=== PATIENT | male | born 1960 | race African-American/Black ===

== ENCOUNTER 2016-05-31 19:24 | Inpatient (IN) | payer OTHER ==
[2016-05-31 20:14] VITALS: BMI 23.0
--- NOTE | 2016-05-31 20:39 | HP ---
COWS - Scale Resting Pulse: 1= [place] 81-100 Sweatin=Flushed/Facial Moisture Restless Observation: 3= Extraneous Movement Pupil Size: 1= Pupils >than Normal Bone or Joint Aches: 4=Acute Joint/Muscle Pain Runny Nose/ Eye Tearin= Runny Nose/Eyes GI Upset > 30mins: 2= Nausea/Diarrhea Tremor Observation: 2= Slight Tremor Visible Yawning Observation: 0= None Anxiety or Irritability: 2=Irritable/Anxious Goose Flesh Skin: 0=Smooth Skin COWS Score: 19 Admission ROS S - HPI Chief Complaint: C/O WITHDRAWAL SX'S. SEEKING DETOX TXMENT Allergies/Adverse Reactions: Allergies Allergy/AdvReac Type Severity Reaction Status Date / Time No Known Allergies Allergy Verified 12/14/13 14:03 History of Present Illness: 55 Y.O. MALE WITH OPIOID DEPENDENCE ADMITTED FOR DETOX TXMENT. CLIENT IS KNOWN TO [facility]. REPORTS LONGEST CLEAN TIME 2 YEARS. Exam Limitations: No Limitations - Ebola screening Have you traveled outside of the country in the last 21 days: No (N) Have you had contact with anyone from an Ebola affected area: No Have you been sick,other than usual withdrawal symptoms: No Do you have a fever: No - Review of Systems Constitutional: Chills, Malaise, Night Sweats, Changes in sleep, Unintentional Wgt. Loss EENT: reports: Nose Congestion, Other Respiratory: reports: No Symptoms reported Cardiac: reports: No Symptoms Reported GI: reports: Nausea, Abdominal cramping : reports: No Symptoms Reported Musculoskeletal: reports: Back Pain Integumentary: reports: No Symptoms Reported Neuro: reports: No Symptoms reported Endocrine: reports: No Symptoms Reported Hematology: reports: No Symptoms Reported Psychiatric: reports: Anxious Other Systems: Reviewed and Negative Patient History - Patient Medical History Hx Anemia: No Hx Asthma: No Hx Chronic Obstructive Pulmonary Disease (COPD): No Hx Cardiac Disorders: No Hx Congestive Heart Failure: No Hx Hypertension: No Hx Hypercholesterolemia: No Hx Pacemaker: No HX Cerebrovascular Accident: No Hx Seizures: No Hx Dementia: No Hx Diabetes: No Hx Gastrointestinal Disorders: No Hx Liver Disease: No Hx Genitourinary Disorders: No Hx Sexually Transmitted Disorders: No Hx Renal Disease (ESRD): No Hx Thyroid Disease: No Hx Human Immunodeficiency Virus (HIV): No Hx Hepatitis C: No Hx Depression: No Hx Suicide Attempt: No Hx Bipolar Disorder: No Hx Schizophrenia: No Other Medical History: DENIES - Patient Surgical History Past Surgical History: No Hx Neurologic Surgery: No Hx Cataract Extraction: No Hx Cardiac Surgery: No Hx Lung Surgery: No Hx Breast Surgery: No Hx Breast Biopsy: No Hx Abdominal Surgery: No Hx Appendectomy: No Hx Cholecystectomy: No Hx Genitourinary Surgery: No Hx Section: No Hx Orthopedic Surgery: No Other Surgical History: L GROIN HERNIA REPAIR Anesthesia Reaction: No - PPD History Previous Implant?: Yes Documented Results: Negative w/o proof Implanted On Prior [facility] Admission?: No PPD to be Administered?: Yes - Smoking Cessation Smoking history: Current every day smoker Have you smoked in the past 12 months: Yes Aproximately how many cigarettes per day: 10 Cigars Per Day: 0 Hx Chewing Tobacco Use: No Initiated information on smoking cessation: Yes 'Breaking Loose' booklet given: 05/31/16 - Substance & Tx. History Hx Alcohol Use: No Substance Use Type: Heroin Hx Substance Use Treatment: Yes ([facility]) - Substances Abused Heroin Route: Inhalation Frequency: Daily Amount used: 5 bags Age of first use: 24 Date of Last Use: 05/30/16 Family Disease History - Family Disease History Family Disease History: Heart Disease: Mother, Other: Father () Admission Physical Exam S - Vital Signs Vital Signs: Vital Signs - 24 hr 05/31/16 19:53 Temperature 98.0 F Pulse Rate 89 Respiratory 20 Rate Blood Pressure 152/93 - Physical General Appearance: Yes: Appropriately Dressed, Mild Distress, Tremorous, Anxious HEENTM: Yes: Nasal Congestion Respiratory: Yes: Chest Non-Tender, No Respiratory Distress, No Accessory Muscle Use, Wheezing, Other (COUGH) Neck: Yes: No masses,lesions,Nodules, Supple, Trachea in good position Breast: Yes: Breast Exam Deferred Cardiology: Yes: Regular Rhythm, Regular Rate, S1, S2 Abdominal: Yes: Normal Bowel Sounds, Non Tender, Flat, Soft Genitourinary: Yes: Within Normal Limits Back: Yes: Normal Inspection Musculoskeletal: Yes: full range of Motion, Gait Steady Extremities: Yes: Normal Capillary Refill, Normal Range of Motion, Non-Tender, Tremors Neurological: Yes: therapeutic specialist II-XII NML intact, Alert, Motor Strength 5/5 Integumentary: Yes: Normal Color, Dry, Warm Lymphatic: Yes: Within Normal Limits - Diagnostic (1) Nicotine dependence Current Visit: Yes Status: Chronic Qualifiers: Nicotine product type: cigarettes Substance use status: uncomplicated Qualified Code(s): F17.210 - Nicotine dependence, cigarettes, uncomplicated (2) Opioid dependence with withdrawal Current Visit: Yes Status: Chronic (3) Cocaine dependence, uncomplicated Current Visit: Yes Status: Chronic Cleared for Admission [facility] - Detox or Rehab [facility] Level of Care: Medically Managed Detox Regimen/Protocol: Methadone [facility] Breath Alcohol Content Breath Alcohol Content: 0 Urine Drug Screen - Results Drug Screen Negative: No Urine Drug Screen Results: VICKI-Cocaine, OPI-Opiates, OXY-Oxycodone
[2016-05-31] MEDS ORDERED: P-EPHED 60MG/TRIPROLIDI 2.5MG TABLET PO PRN (20:48)
[2016-05-31] MEDS ORDERED: guaiFENesin/D-METHORPHAN HB 10 ML UNIT-DOSE CUPS PO PRN (20:48)
[2016-05-31] MEDS ORDERED: MAG HYDROX/AL HYDROX/SIMETH 30 ML UNIT-DOSE CUP PO PRN (20:48)
[2016-05-31] MEDS ORDERED: LOPERAMIDE HCL 2 MG CAPSULE PO PRN (20:48)
[2016-05-31] MEDS ORDERED: MAGNESIUM HYDROX 2400MG/30ML ORAL SUSPENSION 30 ML CUP PO PRN (20:48)
[2016-05-31] MEDS ORDERED: MAGNESIUM CITRATE 300 ML BOTTLE PO PRN (20:48)
[2016-05-31] MEDS ORDERED: MENTHOL/PHENOL 1 EACH UD MM PRN (20:48)
[2016-05-31] MEDS ORDERED: METHADONE HCL 10 MG TABLET (FOR DETOX USE ONLY) PO ONE ×3 (20:48→23:30)
[2016-05-31] MEDS ORDERED: diphenhydrAMINE HCL 50 MG CAPSULE PO PRN (20:48)
[2016-05-31] MEDS ORDERED: diazePAM 5 MG TABLET PO PRN (20:48)
[2016-05-31] MEDS ORDERED: ACETAMINOPHEN 325 MG TABLET (FP) PO PRN (20:48)
[2016-05-31] MEDS ORDERED: NICOTINE POLACRILEX 2 MG GUM BC PRN (20:48)
[2016-05-31] MEDS ORDERED: hydrOXYzine PAMOATE 50 MG CAPSULE (FP) PO PRN (20:48)
[2016-05-31] MEDS ORDERED: IBUPROFEN 400 MG TABLET (FP) PO PRN (20:48)
[2016-05-31 23:12] LABS: URINE APPEARANCE CLEAR; URINE BILIRUBIN NEGATIVE (NEGATIVE); URINE BLOOD NEGATIVE (NEGATIVE); URINE COLOR YELLOW; URINE GLUCOSE (UA) NEGATIVE (NEGATIVE); URINE KETONE 2+ (NEGATIVE); URINE LEUK ESTERASE NEGATIVE (NEGATIVE); URINE NITRITE NEGATIVE (NEGATIVE); URINE UROBILINOGEN 4.0 E.U/dl E.U./dl (0.2-1.0)
[2016-05-31 23:14] LABS: URINE PROTEIN 1+ (NEGATIVE)
[2016-05-31 23:16] LABS: URINE MUCUS FEW; URINE RBC 2 /hpf (0-3); URINE WBC 1 /hpf (3-5)
[2016-05-31] MEDS: THIAMINE HCL 100 MG TABLET (FP) PO SCH (23:21)
[2016-06-01] MEDS ORDERED: METHADONE HCL 10 MG TABLET (FOR DETOX USE ONLY) PO ONE (10:00)
[2016-06-01 10:08] LABS: MCH 28.1 pg (25.7-33.7); MEAN CELL VOLUME 87.6 fl (80-96); MEAN PLT VOLUME 8.7 fl (7.5-11.1); PLATELET COUNT 229 K/MM3 (134-434); RDW 12.7 % (11.9-15.9); WHITE BLOOD COUNT 5.9 K/mm3 (4.0-10.0)
[2016-06-01] MEDS: PRENATAL VITAMINS W/ FOLIC ACID TABLET (FP) PO SCH (10:32)
[2016-06-01] MEDS: NICOTINE 14 MG/24 HOURS TOPICAL PATCH TD SCH (10:33)
--- NOTE | 2016-06-01 10:56 | PN ---
BHS COWS - Scale Resting Pulse: 1= [place] 81-100 Sweatin=Flushed/Facial Moisture Restless Observation: 1= Difficult to Sit Still Pupil Size: 0= Normal to Room Light Bone or Joint Aches: 2= Severe Diffuse Aches Runny Nose/ Eye Tearin= Nasal Congestion GI Upset > 30mins: 2= Nausea/Diarrhea Tremor Observation of Outstretched Hands: 2= Slight Tremor Visible Yawning Observation: 1= 1-2x During Session Anxiety or Irritability: 1=Feels Anxious/Irritable Goose Flesh Skin: 0=Smooth Skin COWS Score: 13 BHS Progress Note (SOAP) Subjective: shakes sweats interrupted sleep body ache Objective: 06/01/16 10:54 Vital Signs Temperature 98.8 F 06/01/16 09:53 Pulse Rate 88 06/01/16 09:53 Respiratory Rate 16 06/01/16 09:53 Blood Pressure 137/90 06/01/16 09:53 O2 Sat by Pulse Oximetry (%) Laboratory Tests 05/31/16 06/01/16 22:00 07:00 WBC 5.9 RBC 4.31 Hgb 12.1 Hct 37.8 MCV 87.6 MCHC 32.0 RDW 12.7 Plt Count 229 MPV 8.7 Urine Color Yellow Urine Appearance Clear Urine pH 7.0 Ur Specific [place] 1.028 Urine Protein 1+ H Urine Glucose (UA) Negative Urine Ketones 2+ H Urine Blood Negative Urine Nitrite Negative Urine Bilirubin Negative Urine Urobilinogen 4.0 e.u/dl Ur Leukocyte Esterase Negative Urine RBC 2 Urine WBC 1 Ur Epithelial Cells Rare Urine Mucus Few labs pending awake/alert ambulating no acute distress Assessment: 06/01/16 10:56 withdrawal sx Plan: continue detox increase fluids
[2016-06-01 11:13] LABS: ALBUMIN 3.3 g/dl (3.4-5.0); ANION GAP 8 (8-16); CALCIUM 9.2 mg/dL (8.5-10.1); CO2 29 mmol/L (21-32); GLUCOSE,RANDOM 70 mg/dL (74-106)
[2016-06-01 11:18] LABS: ALK PHOS 69 U/L (45-117); BILIRUBIN,TOTAL 0.5 mg/dL (0.2-1.0); CREATININE 0.9 mg/dL (0.7-1.3); SGOT/AST 26 U/L (15-37); SGPT/ALT 32 U/L (12-78); TOT PROT 5.9 g/dl (6.4-8.2)
--- NOTE | 2016-06-01 16:54 | EKG ---
Test Reason : Blood Pressure : / mmHG Vent. Rate : 076 BPM Atrial Rate : 076 BPM P-R Int : 154 ms QRS Dur : 074 ms QT Int : 364 ms P-R-T Axes : 061 074 064 degrees QTc Int : 409 ms NORMAL SINUS RHYTHM NORMAL ECG NO PREVIOUS ECGS AVAILABLE Confirmed by DARIUS WILSON MD ([id number]) on 06/01/2016 4:54:30 PM Referred By: Confirmed By:DARIUS WILSON MD
[2016-06-01] MEDS: THIAMINE HCL 100 MG TABLET (FP) PO SCH (23:01)
[2016-06-02] MEDS ORDERED: METHADONE HCL 5 MG TABLET (FOR DETOX USE ONLY) PO ONE (10:00)
[2016-06-02] MEDS: PRENATAL VITAMINS W/ FOLIC ACID TABLET (FP) PO SCH (10:23)
[2016-06-02] MEDS: NICOTINE 14 MG/24 HOURS TOPICAL PATCH TD SCH (10:23)
--- NOTE | 2016-06-02 11:13 | PN ---
BHS COWS - Scale Resting Pulse: 0= [place] 80 or Below Sweatin= Chills/Flushing Restless Observation: 1= Difficult to Sit Still Pupil Size: 1= Pupils >than Normal Bone or Joint Aches: 1= Mild Discomfort Runny Nose/ Eye Tearin= Nasal Congestion GI Upset > 30mins: 1= Stomach Cramp Tremor Observation of Outstretched Hands: 1= Tremor [place], Not Seen Yawning Observation: 0= None Anxiety or Irritability: 1=Feels Anxious/Irritable Goose Flesh Skin: 0=Smooth Skin COWS Score: 8 BHS Progress Note (SOAP) Subjective: SWEATS BUT FEELING BETTER Objective: 06/02/16 11:12 Vital Signs Temperature 98.4 F 06/02/16 09:58 Pulse Rate 77 06/02/16 09:58 Respiratory Rate 16 06/02/16 09:58 Blood Pressure 153/99 06/02/16 09:58 O2 Sat by Pulse Oximetry (%) Laboratory Tests 05/31/16 06/01/16 06/01/16 22:00 07:00 07:00 WBC 5.9 RBC 4.31 Hgb 12.1 Hct 37.8 MCV 87.6 MCHC 32.0 RDW 12.7 Plt Count 229 MPV 8.7 Sodium 143 Potassium 3.9 Chloride 106 Carbon Dioxide 29 Anion Gap 8 BUN 10 D Creatinine 0.9 D Creat Clearance w eGFR > 60 Random Glucose 70 L Calcium 9.2 Total Bilirubin 0.5 D AST 26 ALT 32 D Alkaline Phosphatase 69 Total Protein 5.9 L Albumin 3.3 L Urine Color Yellow Urine Appearance Clear Urine pH 7.0 Ur Specific [place] 1.028 Urine Protein 1+ H Urine Glucose (UA) Negative Urine Ketones 2+ H Urine Blood Negative Urine Nitrite Negative Urine Bilirubin Negative Urine Urobilinogen 4.0 e.u/dl Ur Leukocyte Esterase Negative Urine RBC 2 Urine WBC 1 Ur Epithelial Cells Rare Urine Mucus Few RPR Titer 06/01/16 07:00 WBC RBC Hgb Hct MCV MCHC RDW Plt Count MPV Sodium Potassium Chloride Carbon Dioxide Anion Gap BUN Creatinine Creat Clearance w eGFR Random Glucose Calcium Total Bilirubin AST ALT Alkaline Phosphatase Total Protein Albumin Urine Color Urine Appearance Urine pH Ur Specific [place] Urine Protein Urine Glucose (UA) Urine Ketones Urine Blood Urine Nitrite Urine Bilirubin Urine Urobilinogen Ur Leukocyte Esterase Urine RBC Urine WBC Ur Epithelial Cells Urine Mucus RPR Titer Nonreactive PT AOX3 IN NAD AMBULATING Assessment: 06/02/16 11:13 WITHDRAWL SX'S Plan: CONT. DEETOX INCREASAE FLUIDS
[2016-06-02] MEDS: THIAMINE HCL 100 MG TABLET (FP) PO SCH (22:55)
[2016-06-03] MEDS ORDERED: METHADONE HCL 5 MG TABLET (FOR DETOX USE ONLY) PO ONE (10:00)
[2016-06-03] MEDS: PRENATAL VITAMINS W/ FOLIC ACID TABLET (FP) PO SCH (10:42)
[2016-06-03] MEDS: NICOTINE 14 MG/24 HOURS TOPICAL PATCH TD SCH (10:42)
--- NOTE | 2016-06-03 10:56 | PN ---
BHS Progress Note (SOAP) Subjective: sweats shakes interrupted sleep Objective: 06/03/16 10:55 Vital Signs Temperature 98.2 F 06/03/16 09:27 Pulse Rate 75 06/03/16 09:27 Respiratory Rate 18 06/03/16 09:27 Blood Pressure 138/95 06/03/16 09:27 O2 Sat by Pulse Oximetry (%) Laboratory Tests 05/31/16 06/01/16 06/01/16 22:00 07:00 07:00 WBC 5.9 RBC 4.31 Hgb 12.1 Hct 37.8 MCV 87.6 MCHC 32.0 RDW 12.7 Plt Count 229 MPV 8.7 Sodium 143 Potassium 3.9 Chloride 106 Carbon Dioxide 29 Anion Gap 8 BUN 10 D Creatinine 0.9 D Creat Clearance w eGFR > 60 Random Glucose 70 L Calcium 9.2 Total Bilirubin 0.5 D AST 26 ALT 32 D Alkaline Phosphatase 69 Total Protein 5.9 L Albumin 3.3 L Urine Color Yellow Urine Appearance Clear Urine pH 7.0 Ur Specific [place] 1.028 Urine Protein 1+ H Urine Glucose (UA) Negative Urine Ketones 2+ H Urine Blood Negative Urine Nitrite Negative Urine Bilirubin Negative Urine Urobilinogen 4.0 e.u/dl Ur Leukocyte Esterase Negative Urine RBC 2 Urine WBC 1 Ur Epithelial Cells Rare Urine Mucus Few RPR Titer 06/01/16 07:00 WBC RBC Hgb Hct MCV MCHC RDW Plt Count MPV Sodium Potassium Chloride Carbon Dioxide Anion Gap BUN Creatinine Creat Clearance w eGFR Random Glucose Calcium Total Bilirubin AST ALT Alkaline Phosphatase Total Protein Albumin Urine Color Urine Appearance Urine pH Ur Specific [place] Urine Protein Urine Glucose (UA) Urine Ketones Urine Blood Urine Nitrite Urine Bilirubin Urine Urobilinogen Ur Leukocyte Esterase Urine RBC Urine WBC Ur Epithelial Cells Urine Mucus RPR Titer Nonreactive awake/alert ambulating no acute distress Assessment: 06/03/16 10:55 withdrawal sx Plan: continue detox increase fluids
[2016-06-03] MEDS: THIAMINE HCL 100 MG TABLET (FP) PO SCH (23:04)
[2016-06-04] MEDS ORDERED: METHADONE HCL 10 MG TABLET (FOR DETOX USE ONLY) PO ONE (10:00)
[2016-06-04] MEDS: PRENATAL VITAMINS W/ FOLIC ACID TABLET (FP) PO SCH (10:32)
[2016-06-04] MEDS: NICOTINE 14 MG/24 HOURS TOPICAL PATCH TD SCH (10:33)
--- NOTE | 2016-06-04 12:21 | PN ---
BHS Progress Note (SOAP) Subjective: ALERT,IRRITABLE,ANXIOUS,INTERRUPTED SLEEP,PAIN IN THE BODY Objective: 06/04/16 12:20 Vital Signs Temperature 98.1 F 06/04/16 10:14 Pulse Rate 75 06/04/16 10:14 Respiratory Rate 18 06/04/16 10:14 Blood Pressure 131/76 06/04/16 10:14 O2 Sat by Pulse Oximetry (%) Assessment: 06/04/16 12:20 WITHDRAWAL SYMPTOM Plan: CONTINUE DETOX,DISCHARGE IN AM
[2016-06-04] MEDS: THIAMINE HCL 100 MG TABLET (FP) PO SCH (23:03)
[2016-06-05] MEDS ORDERED: METHADONE HCL 5 MG TABLET (FOR DETOX USE ONLY) PO ONE (06:00)
[2016-06-05 06:25] VITALS: TEMP 97.9
--- NOTE | 2016-06-05 08:53 | DS ---
[facility] Detox Discharge Summary Admission Date: 05/31/16 Discharge Date: 06/05/16 - History Present History: Cocaine Dependence, Opioid Dependence Additional Comments: FOLLOW UP WITH AFTER CARE PROGRAM ARRANGEMENT AND PMD FOR MEDICAL PROBLEM Pertinent Past History: NICOTINE DEPENDENCE - Physical Exam Results Vital Signs: Vital Signs Temperature 97.9 F 06/05/16 06:00 Pulse Rate 69 06/05/16 06:00 Respiratory Rate 18 06/05/16 06:00 Blood Pressure 129/78 06/05/16 06:00 O2 Sat by Pulse Oximetry (%) Pertinent Admission Physical Exam Findings: WITHDRAWAL SYMPTOM - Treatment Hospital Course: Detox Protocol Followed, Detoxed Safely, Responded well, Discharged Condition Good Patient has Accepted a Rehab Referral to: DECLINED - Medication Discharge Medications: Ambulatory Orders NK [No Known Home Medication] 12/14/13 - AMA Did Patient Leave Against Medical Advice: No
--- NOTE | 2016-06-05 08:53 | PN ---
S Progress Note (SOAP) Subjective: ALERT,NO COMPLAINT Objective: 06/05/16 08:52 Vital Signs Temperature 97.9 F 06/05/16 06:00 Pulse Rate 69 06/05/16 06:00 Respiratory Rate 18 06/05/16 06:00 Blood Pressure 129/78 06/05/16 06:00 O2 Sat by Pulse Oximetry (%) Assessment: 06/05/16 08:52 DETOX COMPLETED,NO WITHDRAWAL SYMPTOM Plan: DISCHARGE TODAY,FOLLOW UP WITH AFTER CARE PROGRAM ARRANGEMENT
[2016-06-05 09:54] VITALS: BP 119/77; PULSE 73
== END 2016-06-05 09:40 | disposition home or self-care (01) | DRG 773 ==
LOC: YASAS 19:24 → Y6N 20:10
PROVIDERS: ADMIT Internal Medicine Addiction Medicine; ATTEND Internal Medicine Addiction Medicine
PROC: HZ2ZZZZ Detoxification Services for Substance Abuse Treatment (ICD-10-PCS; principal; 2016-06-05)
DX: F11.23 Opioid dependence with withdrawal (principal); F14.20 Cocaine dependence, uncomplicated; F17.210 Nicotine dependence, cigarettes, uncomplicated
CPT/HCPCS: 36415; 80053; 81003; 81015; 85027; 86593; 93005; 93010

== ENCOUNTER 2017-11-21 15:25 | Inpatient (IN) | payer OTHER ==
[2017-11-21 19:00] VITALS: BMI 22.2
[2017-11-21] MEDS ORDERED: LOPERAMIDE HCL 2 MG CAPSULE PO PRN (21:26)
[2017-11-21] MEDS ORDERED: diazePAM 5 MG TABLET PO PRN (21:26)
[2017-11-21] MEDS ORDERED: ACETAMINOPHEN 325 MG TABLET (FP) PO PRN (21:26)
[2017-11-21] MEDS ORDERED: MAGNESIUM CITRATE 300 ML BOTTLE PO PRN (21:26)
[2017-11-21] MEDS ORDERED: P-EPHED 60MG/TRIPROLIDI 2.5MG TABLET PO PRN (21:26)
[2017-11-21] MEDS ORDERED: MENTHOL/PHENOL 1 EACH UD MM PRN (21:26)
[2017-11-21] MEDS ORDERED: MAG HYDROX/AL HYDROX/SIMETH 30 ML UNIT-DOSE CUP PO PRN (21:26)
[2017-11-21] MEDS ORDERED: guaiFENesin/D-METHORPHAN HB 10 ML UNIT-DOSE CUPS PO PRN (21:26)
[2017-11-21] MEDS ORDERED: MAGNESIUM HYDROX 2400MG/30ML ORAL SUSPENSION 30 ML CUP PO PRN (21:26)
[2017-11-21] MEDS ORDERED: METHADONE HCL 10 MG TABLET (FOR DETOX USE ONLY) PO ONE ×2 (21:26→23:00)
[2017-11-21] MEDS ORDERED: IBUPROFEN 400 MG TABLET (FP) PO PRN (21:26)
--- NOTE | 2017-11-21 21:26 | HP ---
COWS - Scale Resting Pulse: 0= [place] 80 or Below Sweatin= Chills/Flushing Restless Observation: 1= Difficult to Sit Still Pupil Size: 1= Pupils >than Normal Bone or Joint Aches: 1= Mild Discomfort Runny Nose/ Eye Tearin= Runny Nose/Eyes GI Upset > 30mins: 1= Stomach Cramp Tremor Observation: 1= Tremor [place], Not Seen Yawning Observation: 2= >3x During Session Anxiety or Irritability: 2=Irritable/Anxious Goose Flesh Skin: 0=Smooth Skin COWS Score: 12 Admission ROS S - [facility] Chief Complaint: opioid withdrawal symptoms Allergies/Adverse Reactions: Allergies Allergy/AdvReac Type Severity Reaction Status Date / Time No Known Allergies Allergy Verified 12/14/13 14:03 History of Present Illness: 56 yo male with hx heroin (nasal), and nicotine dependence is here seeking detox , this is one of multiple admissions. Last detox two months ago at [facility]. utox positive for MOP and VICKI, denies cocaine use. Denies any medical or psychiatric problems. Denies hx of seizures, blackouts, or overdose. Longest period of sobriety two years. Exam Limitations: No Limitations - Ebola screening Have you traveled outside of the country in the last 21 days: No Have you had contact with anyone from an Ebola affected area: No Have you been sick,other than usual withdrawal symptoms: No Do you have a fever: No - Review of Systems Constitutional: Chills, Changes in sleep, Weakness, Unintentional Wgt. Loss (5 lbs in the last 30 days) EENT: reports: Nose Congestion Respiratory: reports: No Symptoms reported Cardiac: reports: No Symptoms Reported GI: reports: Poor Fluid Intake, Abdominal cramping : reports: No Symptoms Reported Musculoskeletal: reports: Joint Pain Integumentary: reports: No Symptoms Reported Neuro: reports: No Symptoms reported Endocrine: reports: Increased Thirst Hematology: reports: No Symptoms Reported Psychiatric: reports: Orientated x3, Anxious Other Systems: Reviewed and Negative Patient History - Patient Medical History Hx Anemia: No Hx Asthma: No Hx Chronic Obstructive Pulmonary Disease (COPD): No Hx Cancer: No Hx Cardiac Disorders: No Hx Congestive Heart Failure: No Hx Hypertension: No Hx Hypercholesterolemia: No Hx Pacemaker: No HX Cerebrovascular Accident: No Hx Seizures: No Hx Dementia: No Hx Diabetes: No Hx Gastrointestinal Disorders: No Hx Liver Disease: No Hx Genitourinary Disorders: No Hx Sexually Transmitted Disorders: No Hx Renal Disease (ESRD): No Hx Thyroid Disease: No Hx Human Immunodeficiency Virus (HIV): No (last tested one year ago, declines furtehr testing at this time ) Hx Hepatitis C: No Hx Depression: No Hx Suicide Attempt: No Hx Bipolar Disorder: No Hx Schizophrenia: No - Patient Surgical History Past Surgical History: No Hx Neurologic Surgery: No Hx Cataract Extraction: No Hx Cardiac Surgery: No Hx Lung Surgery: No Hx Breast Surgery: No Hx Breast Biopsy: No Hx Abdominal Surgery: No Hx Appendectomy: No Hx Cholecystectomy: No Hx Genitourinary Surgery: No Hx Section: No Hx Orthopedic Surgery: No Other Surgical History: L GROIN HERNIA REPAIR Anesthesia Reaction: No - PPD History Previous Implant?: Yes Documented Results: Negative w/proof Date: 04/01/17 Results: 0mm PPD to be Administered?: No - Smoking Cessation Smoking history: Current every day smoker Have you smoked in the past 12 months: Yes Aproximately how many cigarettes per day: 10 Cigars Per Day: 0 Hx Chewing Tobacco Use: No Initiated information on smoking cessation: Yes 'Breaking Loose' booklet given: 11/21/17 - Substance & Tx. History Hx Alcohol Use: No Hx Substance Use: Yes Substance Use Type: Heroin Hx Substance Use Treatment: Yes ( Last detox two months ago at [facility]. ) - Substances Abused Heroin Route: Inhalation Frequency: Daily Amount used: 7-8 bags Age of first use: 24 Date of Last Use: 11/20/17 Family Disease History - Family Disease History Family Disease History: Heart Disease: Mother, Other: Father () Admission Physical Exam [facility] - Vital Signs Vital Signs: Vital Signs - 24 hr 11/21/17 18:59 Temperature 97.9 F Pulse Rate 71 Respiratory 18 Rate Blood Pressure 151/102 - Physical General Appearance: Yes: Mild Distress, Thin, Sweating, Anxious HEENTM: Yes: EOMI, Hearing grossly Normal, Normal ENT Inspection, Normocephalic , Normal Voice, ASHLIE, Pharynx Normal, Tm's normal Respiratory: Yes: Chest Non-Tender, No Respiratory Distress, No Accessory Muscle Use, Wheezing Neck: Yes: Within Normal Limits Breast: Yes: Breast Exam Deferred Cardiology: Yes: Regular Rhythm, Regular Rate Abdominal: Yes: Within Normal Limits Genitourinary: Yes: Within Normal Limits Back: Yes: Normal Inspection Musculoskeletal: Yes: full range of Motion, Gait Steady, Pelvis Stable Extremities: Yes: Normal Capillary Refill, Normal Inspection, Normal Range of Motion, Non-Tender Neurological: Yes: bulb grower II-XII NML intact, Fully Oriented, Alert, Motor Strength 5/5, Depressed Affect Integumentary: Yes: Normal Color, Warm, Diaphoresis Lymphatic: Yes: Within Normal Limits - Diagnostic (1) Wheezing Current Visit: Yes Status: Acute (2) Nicotine dependence Current Visit: Yes Status: Chronic Qualifiers: Nicotine product type: cigarettes Substance use status: uncomplicated Qualified Code(s): F17.210 - Nicotine dependence, cigarettes, uncomplicated (3) Opioid dependence with withdrawal Current Visit: Yes Status: Chronic (4) Recent weight loss Current Visit: Yes Status: Chronic Cleared for Admission [facility] - Detox or Rehab [facility] Level of Care: Medically Managed Detox Regimen/Protocol: Methadone [facility] Breath Alcohol Content Breath Alcohol Content: 0 Urine Drug Screen - Results Drug Screen Negative: No Urine Drug Screen Results: VICKI-Cocaine, OPI-Opiates
[2017-11-21] MEDS ORDERED: cloNIDine HCL 0.1 MG TABLET PO ONE (21:32)
[2017-11-21] MEDS ORDERED: MELATONIN 5 MG TABLETS PO PRN (22:00)
[2017-11-21] MEDS: THIAMINE HCL 100 MG TABLET (FP) PO SCH (22:42)
[2017-11-21 23:48] LABS: URINE APPEARANCE CLEAR; URINE BILIRUBIN NEGATIVE (<2.0 mg/dL); URINE COLOR YELLOW; URINE GLUCOSE (UA) NEGATIVE (NEGATIVE); URINE KETONE TRACE (NEGATIVE); URINE LEUK ESTERASE NEGATIVE (NEGATIVE); URINE NITRITE NEGATIVE (NEGATIVE); URINE PROTEIN NEGATIVE (NEGATIVE)
[2017-11-22] MEDS ORDERED: METHADONE HCL 10 MG TABLET (FOR DETOX USE ONLY) PO ONE (10:00)
[2017-11-22] MEDS: PRENATAL VITAMINS W/ FOLIC ACID TABLET (FP) PO SCH (10:12)
[2017-11-22 10:22] LABS: HEMATOCRIT 43.4 % (35.4-49); HEMOGLOBIN 13.7 GM/dL (11.7-16.9); MCHC 31.5 g/dl (32.0-35.9); MEAN PLT VOLUME 9.5 fl (7.5-11.1); PLATELET COUNT 229 K/MM3 (134-434); RBC 4.87 M/mm3 (4.00-5.60); RDW 13.4 % (11.9-15.9); WHITE BLOOD COUNT 4.8 K/mm3 (4.0-10.0)
[2017-11-22 11:36] LABS: CHLORIDE 100 mmol/L (98-107); POTASSIUM 4.6 mmol/L (3.5-5.1); SODIUM 141 mmol/L (136-145)
--- NOTE | 2017-11-22 11:53 | PN ---
BHS COWS - Scale Resting Pulse: 0= [place] 80 or Below Sweatin= Chills/Flushing Restless Observation: 3= Extraneous Movement Pupil Size: 0= Normal to Room Light Bone or Joint Aches: 4=Acute Joint/Muscle Pain Runny Nose/ Eye Tearin= None GI Upset > 30mins: 0= None Tremor Observation of Outstretched Hands: 1= Tremor [place], Not Seen Yawning Observation: 2= >3x During Session Anxiety or Irritability: 2=Irritable/Anxious Goose Flesh Skin: 0=Smooth Skin COWS Score: 13 BHS Progress Note (SOAP) Subjective: ANXIETY, SWEATS, INTERMITTENT SLEEP. Objective: 11/22/17 11:54 Vital Signs 11/22/17 11/22/17 06:20 10:13 Temperature 97.6 F 97.6 F Pulse Rate 64 70 Respiratory 18 18 Rate Blood Pressure 121/77 124/76 Laboratory Tests 11/21/17 11/22/17 23:35 07:00 WBC 4.8 RBC 4.87 Hgb 13.7 Hct 43.4 MCV 89.0 MCH 28.0 MCHC 31.5 L RDW 13.4 Plt Count 229 MPV 9.5 Urine Color Yellow Urine Appearance Clear Urine pH 5.0 D Ur Specific [place] 1.030 Urine Protein Negative Urine Glucose (UA) Negative Urine Ketones Trace H Urine Blood Negative Urine Nitrite Negative Urine Bilirubin Negative Urine Urobilinogen 2.0 Ur Leukocyte Esterase Negative Assessment: 11/22/17 11:55 WITHDRAWAL SX Plan: CONTINUE DETOX
[2017-11-22 11:57] LABS: ALBUMIN 3.7 g/dl (3.4-5.0); ALK PHOS 79 U/L (45-117); ANION GAP 6 MMOL/L (8-16); BILIRUBIN,TOTAL 0.5 mg/dL (0.2-1.0); BLOOD UREA NITROGEN 15 mg/dL (7-18); CALCIUM 9.3 mg/dL (8.5-10.1); CO2 35 mmol/L (21-32); GLUCOSE,RANDOM 96 mg/dL (74-106); SGOT/AST 32 U/L (15-37); SGPT/ALT 25 U/L (12-78); TOT PROT 6.8 g/dl (6.4-8.2)
--- NOTE | 2017-11-22 17:21 | EKG ---
Test Reason : Blood Pressure : / mmHG Vent. Rate : 066 BPM Atrial Rate : 066 BPM P-R Int : 144 ms QRS Dur : 090 ms QT Int : 392 ms P-R-T Axes : 032 072 067 degrees QTc Int : 410 ms NORMAL SINUS RHYTHM NORMAL ECG Confirmed by MD EPTE, CLAY ([id number]) on 11/22/2017 5:21:37 PM Referred By: Confirmed By:CLAY FREEMAN MD
[2017-11-22] MEDS: THIAMINE HCL 100 MG TABLET (FP) PO SCH (22:23)
[2017-11-23] MEDS ORDERED: METHADONE HCL 5 MG TABLET (FOR DETOX USE ONLY) PO ONE (10:00)
[2017-11-23] MEDS: PRENATAL VITAMINS W/ FOLIC ACID TABLET (FP) PO SCH (10:16)
--- NOTE | 2017-11-23 12:03 | PN ---
BHS COWS - Scale Resting Pulse: 0= [place] 80 or Below Sweatin= Chills/Flushing Restless Observation: 3= Extraneous Movement Pupil Size: 0= Normal to Room Light Bone or Joint Aches: 1= Mild Discomfort Runny Nose/ Eye Tearin= None GI Upset > 30mins: 0= None Tremor Observation of Outstretched Hands: 2= Slight Tremor Visible Yawning Observation: 2= >3x During Session Anxiety or Irritability: 2=Irritable/Anxious Goose Flesh Skin: 0=Smooth Skin COWS Score: 11 BHS Progress Note (SOAP) Subjective: ANXIETY,SWEATS,IRRITABILITY,CHILLS. Objective: 11/23/17 12:03 Vital Signs 11/23/17 11/23/17 06:03 10:45 Temperature 97.7 F 98.4 F Pulse Rate 57 L 73 Respiratory 18 20 Rate Blood Pressure 117/68 125/75 Laboratory Tests 11/21/17 11/22/17 11/22/17 23:35 07:00 07:00 WBC 4.8 RBC 4.87 Hgb 13.7 Hct 43.4 MCV 89.0 MCH 28.0 MCHC 31.5 L RDW 13.4 Plt Count 229 MPV 9.5 Sodium 141 Potassium 4.6 Chloride 100 Carbon Dioxide 35 H D Anion Gap 6 L BUN 15 Creatinine 1.0 Creat Clearance w eGFR > 60 Random Glucose 96 D Calcium 9.3 Total Bilirubin 0.5 AST 32 D ALT 25 D Alkaline Phosphatase 79 Total Protein 6.8 Albumin 3.7 Urine Color Yellow Urine Appearance Clear Urine pH 5.0 D Ur Specific [place] 1.030 Urine Protein Negative Urine Glucose (UA) Negative Urine Ketones Trace H Urine Blood Negative Urine Nitrite Negative Urine Bilirubin Negative Urine Urobilinogen 2.0 Ur Leukocyte Esterase Negative RPR Titer 11/22/17 07:00 WBC RBC Hgb Hct MCV MCH MCHC RDW Plt Count MPV Sodium Potassium Chloride Carbon Dioxide Anion Gap BUN Creatinine Creat Clearance w eGFR Random Glucose Calcium Total Bilirubin AST ALT Alkaline Phosphatase Total Protein Albumin Urine Color Urine Appearance Urine pH Ur Specific [place] Urine Protein Urine Glucose (UA) Urine Ketones Urine Blood Urine Nitrite Urine Bilirubin Urine Urobilinogen Ur Leukocyte Esterase RPR Titer Nonreactive Assessment: 11/23/17 12:03 WITHDRAWAL SX Plan: CONTINUE DETOX
[2017-11-23] MEDS: THIAMINE HCL 100 MG TABLET (FP) PO SCH (22:39)
[2017-11-24] MEDS ORDERED: METHADONE HCL 5 MG TABLET (FOR DETOX USE ONLY) PO ONE (10:00)
[2017-11-24] MEDS: PRENATAL VITAMINS W/ FOLIC ACID TABLET (FP) PO SCH (10:14)
--- NOTE | 2017-11-24 11:58 | PN ---
BHS COWS - Scale Resting Pulse: 0= [place] 80 or Below Sweatin= No chills or Flushing Restless Observation: 0= Sits Still Pupil Size: 0= Normal to Room Light Bone or Joint Aches: 1= Mild Discomfort Runny Nose/ Eye Tearin= None GI Upset > 30mins: 0= None Tremor Observation of Outstretched Hands: 0= None Yawning Observation: 0= None Anxiety or Irritability: 0= None Goose Flesh Skin: 0=Smooth Skin COWS Score: 1 BHS Progress Note (SOAP) Subjective: Mild body aches. Objective: 11/24/17 11:56 Laboratory Tests 11/21/17 11/22/17 11/22/17 23:35 07:00 07:00 WBC 4.8 RBC 4.87 Hgb 13.7 Hct 43.4 MCV 89.0 MCH 28.0 MCHC 31.5 L RDW 13.4 Plt Count 229 MPV 9.5 Sodium 141 Potassium 4.6 Chloride 100 Carbon Dioxide 35 H D Anion Gap 6 L BUN 15 Creatinine 1.0 Creat Clearance w eGFR > 60 Random Glucose 96 D Calcium 9.3 Total Bilirubin 0.5 AST 32 D ALT 25 D Alkaline Phosphatase 79 Total Protein 6.8 Albumin 3.7 Urine Color Yellow Urine Appearance Clear Urine pH 5.0 D Ur Specific [place] 1.030 Urine Protein Negative Urine Glucose (UA) Negative Urine Ketones Trace H Urine Blood Negative Urine Nitrite Negative Urine Bilirubin Negative Urine Urobilinogen 2.0 Ur Leukocyte Esterase Negative RPR Titer 11/22/17 07:00 WBC RBC Hgb Hct MCV MCH MCHC RDW Plt Count MPV Sodium Potassium Chloride Carbon Dioxide Anion Gap BUN Creatinine Creat Clearance w eGFR Random Glucose Calcium Total Bilirubin AST ALT Alkaline Phosphatase Total Protein Albumin Urine Color Urine Appearance Urine pH Ur Specific [place] Urine Protein Urine Glucose (UA) Urine Ketones Urine Blood Urine Nitrite Urine Bilirubin Urine Urobilinogen Ur Leukocyte Esterase RPR Titer Nonreactive Vital Signs Temperature 97.4 F L 11/24/17 09:48 Pulse Rate 64 11/24/17 09:48 Respiratory Rate 18 11/24/17 09:48 Blood Pressure 122/76 11/24/17 09:48 O2 Sat by Pulse Oximetry (%) Assessment: 11/24/17 11:57 Withdrawal syndrome Plan: Continue detox as per protocol.
[2017-11-24] MEDS: THIAMINE HCL 100 MG TABLET (FP) PO SCH (22:17)
--- NOTE | 2017-11-25 09:55 | PN ---
BHS Progress Note (SOAP) Subjective: Patient presents without any complaints. States " I feel better". Objective: 11/25/17 09:54 Laboratory Tests 11/21/17 11/22/17 11/22/17 23:35 07:00 07:00 WBC 4.8 RBC 4.87 Hgb 13.7 Hct 43.4 MCV 89.0 MCH 28.0 MCHC 31.5 L RDW 13.4 Plt Count 229 MPV 9.5 Sodium 141 Potassium 4.6 Chloride 100 Carbon Dioxide 35 H D Anion Gap 6 L BUN 15 Creatinine 1.0 Creat Clearance w eGFR > 60 Random Glucose 96 D Calcium 9.3 Total Bilirubin 0.5 AST 32 D ALT 25 D Alkaline Phosphatase 79 Total Protein 6.8 Albumin 3.7 Urine Color Yellow Urine Appearance Clear Urine pH 5.0 D Ur Specific [place] 1.030 Urine Protein Negative Urine Glucose (UA) Negative Urine Ketones Trace H Urine Blood Negative Urine Nitrite Negative Urine Bilirubin Negative Urine Urobilinogen 2.0 Ur Leukocyte Esterase Negative RPR Titer 11/22/17 07:00 WBC RBC Hgb Hct MCV MCH MCHC RDW Plt Count MPV Sodium Potassium Chloride Carbon Dioxide Anion Gap BUN Creatinine Creat Clearance w eGFR Random Glucose Calcium Total Bilirubin AST ALT Alkaline Phosphatase Total Protein Albumin Urine Color Urine Appearance Urine pH Ur Specific [place] Urine Protein Urine Glucose (UA) Urine Ketones Urine Blood Urine Nitrite Urine Bilirubin Urine Urobilinogen Ur Leukocyte Esterase RPR Titer Nonreactive PE: alert and oriented skin warm and dry car [id number] resp cta bl ext no edema Assessment: 11/25/17 09:54 Withdrawal syndrome Plan: patient medically stable tolerating detox well continue to monitor clinically
[2017-11-25] MEDS ORDERED: METHADONE HCL 10 MG TABLET (FOR DETOX USE ONLY) PO ONE (10:00)
[2017-11-25] MEDS: PRENATAL VITAMINS W/ FOLIC ACID TABLET (FP) PO SCH (10:26)
[2017-11-25] MEDS: THIAMINE HCL 100 MG TABLET (FP) PO SCH (22:27)
[2017-11-26 06:00] VITALS: BP 111/61; PULSE 64; TEMP 97.8
[2017-11-26] MEDS ORDERED: METHADONE HCL 5 MG TABLET (FOR DETOX USE ONLY) PO ONE (06:00)
[2017-11-26] MEDS: PRENATAL VITAMINS W/ FOLIC ACID TABLET (FP) PO SCH (10:44)
== END 2017-11-26 10:46 | disposition other institution (70) | DRG 773 ==
LOC: YASAS 15:25 → Y3N 20:49
PROC: HZ2ZZZZ Detoxification Services for Substance Abuse Treatment (ICD-10-PCS; principal; 2017-11-21)
DX: F11.23 Opioid dependence with withdrawal (principal); F14.20 Cocaine dependence, uncomplicated; F17.213 Nicotine dependence, cigarettes, with withdrawal; R63.4 Abnormal weight loss; Z68.22 Body mass index [BMI] 22.0-22.9, adult; R06.2 Wheezing; Z59.0 Homelessness
CPT/HCPCS: 36415; 80053; 81003; 85027; 86593; 93005; 93010; J0735

== ENCOUNTER 2017-11-26 11:10 | Inpatient (IN) | payer OTHER ==
[2017-11-26] MEDS ORDERED: hydrOXYzine PAMOATE 50 MG CAPSULE (FP) PO PRN (15:36)
[2017-11-26] MEDS ORDERED: ACETAMINOPHEN 325 MG TABLET (FP) PO PRN (15:36)
[2017-11-26] MEDS ORDERED: MAGNESIUM HYDROX 2400MG/30ML ORAL SUSPENSION 30 ML CUP PO PRN (15:36)
[2017-11-26] MEDS ORDERED: guaiFENesin/D-METHORPHAN HB 10 ML UNIT-DOSE CUPS PO PRN (15:36)
[2017-11-26] MEDS ORDERED: IBUPROFEN 400 MG TABLET (FP) PO PRN (15:36)
[2017-11-26] MEDS ORDERED: MENTHOL/PHENOL 1 EACH UD MM PRN (15:36)
[2017-11-26] MEDS ORDERED: MAGNESIUM CITRATE 300 ML BOTTLE PO PRN (15:36)
[2017-11-26] MEDS ORDERED: MAG HYDROX/AL HYDROX/SIMETH 30 ML UNIT-DOSE CUP PO PRN (15:36)
[2017-11-26] MEDS ORDERED: P-EPHED 60MG/TRIPROLIDI 2.5MG TABLET PO PRN (15:36)
[2017-11-26] MEDS ORDERED: LOPERAMIDE HCL 2 MG CAPSULE PO PRN (15:36)
--- NOTE | 2017-11-26 15:38 | HP ---
[facility] Assess/Revision - Admission History Date of Admission to Rehab: 11/26/17 - Findings Detox History & Physical reviewed: Yes Concur with findings: Yes Inpatient Rehab Admission - Initial Determination Free of communicable disease: Yes Not in need of hospitalization: Yes - Rehab Admission Criteria Previous failed treatment: Yes Poor recovery environment: Yes Lacks judgement: Yes Patient is meeting Inpatient Rehab admission criteria:: Yes
[2017-11-26] MEDS: THIAMINE HCL 100 MG TABLET (FP) PO SCH (22:00)
[2017-11-26] MEDS ORDERED: MELATONIN 5 MG TABLETS PO PRN (22:00)
[2017-11-27] MEDS: PRENATAL VITAMINS W/ FOLIC ACID TABLET (FP) PO SCH (10:34)
[2017-11-27] MEDS: THIAMINE HCL 100 MG TABLET (FP) PO SCH (21:47)
--- NOTE | 2017-11-28 07:50 | HP ---
Psychiatrist Admission - Data Date of interview: 11/28/17 Admission source: 3N Identifying data: This is the first [facility] admission for this 56 years old single Black male, unemployed with no source of income, homeless Medical History: Significant for history of surgery for left inguinal hernia repair. Smokes 10 cigarettes daily Psychiatric History: Denies history of previous psychiatric treatment Physical/Sexual Abuse/Trauma History: Denies history of emotional, physical or sexual abuse as well as DV relationship Additional Comment: Reports history of multiple previous arrests including 2 felony convictions. Denies being on parole/ptrobation currently Vital Signs: Vital Signs - 24 hr 11/28/17 11/28/17 00:30 06:53 Temperature 97.9 F Pulse Rate 68 Respiratory 18 16 Rate Blood Pressure 133/86 Allergies/Adverse Reactions: Allergies Allergy/AdvReac Type Severity Reaction Status Date / Time No Known Allergies Allergy Verified 12/14/13 14:03 Date of last physical exam: 11/21/17 Concur with the findings of this exam: Yes - Substance Abuse/Tx History Hx Alcohol Use: No Hx Substance Use: Yes Substance Use Type: Heroin (Started using heroin at age 24, used 7-8 bags daily. Last used on 11/20/17) Hx Substance Use Treatment: Yes (4 previous inpt detox admissions @ [facility]) Mental Status Exam - Mental Status Exam Alert and Oriented to: Time, Place, Person Cognitive Function: Fair Patient Appearance: Well Groomed Mood: Hopeful, Euthymic Patient Behavior: Cooperative Speech Pattern: Clear Voice Loudness: Normal Thought Process: Intact Thought Disorder: Not Present Hallucinations: Denies Suicidal Ideation: Denies Homicidal Ideation: Denies Insight/Judgement: Fair Sleep: Well Appetite: Fair Muscle strength/Tone: Normal Gait/Station: Normal Psychiatric Findings - Problem List ([place] 1, 2,3) (1) Opioid dependence Current Visit: No Status: Chronic (2) Nicotine dependence Current Visit: No Status: Acute Qualifiers: Nicotine product type: cigarettes Substance use status: in withdrawal Qualified Code(s): F17.213 - Nicotine dependence, cigarettes, with withdrawal - Initial Treatment Plan Initial Treatment Plan: Monitor progress
[2017-11-28] MEDS: PRENATAL VITAMINS W/ FOLIC ACID TABLET (FP) PO SCH (10:57)
[2017-11-28] MEDS: THIAMINE HCL 100 MG TABLET (FP) PO SCH (22:35)
[2017-11-29] MEDS: PRENATAL VITAMINS W/ FOLIC ACID TABLET (FP) PO SCH (10:53)
[2017-11-29] MEDS: THIAMINE HCL 100 MG TABLET (FP) PO SCH (21:59)
[2017-11-30] MEDS: PRENATAL VITAMINS W/ FOLIC ACID TABLET (FP) PO SCH (10:36)
[2017-11-30] MEDS: THIAMINE HCL 100 MG TABLET (FP) PO SCH (21:40)
[2017-12-01] MEDS: PRENATAL VITAMINS W/ FOLIC ACID TABLET (FP) PO SCH (10:55)
[2017-12-01] MEDS: THIAMINE HCL 100 MG TABLET (FP) PO SCH (21:57)
[2017-12-02] MEDS: PRENATAL VITAMINS W/ FOLIC ACID TABLET (FP) PO SCH (11:01)
[2017-12-02] MEDS: THIAMINE HCL 100 MG TABLET (FP) PO SCH (21:47)
[2017-12-03] MEDS: PRENATAL VITAMINS W/ FOLIC ACID TABLET (FP) PO SCH (10:29)
[2017-12-03] MEDS: THIAMINE HCL 100 MG TABLET (FP) PO SCH (22:01)
[2017-12-04 07:26] VITALS: BP 137/83; PULSE 75; TEMP 98.3
[2017-12-04] MEDS: PRENATAL VITAMINS W/ FOLIC ACID TABLET (FP) PO SCH (10:30)
--- NOTE | 2017-12-04 11:44 | PN ---
[facility] Progress Note Note: Psychiatric nurse practitioner clinical education assistant note: Pt. requesting an early discharge. Mr. Vasquez has been on unit for 13 days and states he is ready to leave. He plans on attending the [facility] outpatient program. As per chart patient does not have a psychiatric history. Pt. denies thoughts or urges to hurt self or others. Pt. leaving as an early discharge.
== END 2017-12-04 11:45 | disposition home or self-care (01) | DRG 772 ==
LOC: YASAS 11:10 → Y5N 11:11
PROVIDERS: ADMIT Psychiatry & Neurology Psychiatry; ATTEND Psychiatry & Neurology Psychiatry
PROC: HZ42ZZZ Group Counseling for Substance Abuse Treatment, Cognitive-Behavioral (ICD-10-PCS; principal; 2017-11-26)
DX: F11.20 Opioid dependence, uncomplicated (principal); F17.210 Nicotine dependence, cigarettes, uncomplicated; Z59.0 Homelessness

== ENCOUNTER 2018-02-23 11:54 | Inpatient (IN) | payer OTHER ==
[2018-02-23 12:19] VITALS: BMI 22.2
--- NOTE | 2018-02-23 14:54 | HP ---
COWS - Scale Resting Pulse: 1= [place] 81-100 Sweatin=Flushed/Facial Moisture Restless Observation: 1= Difficult to Sit Still Pupil Size: 0= Normal to Room Light Bone or Joint Aches: 2= Severe Diffuse Aches Runny Nose/ Eye Tearin= Runny Nose/Eyes GI Upset > 30mins: 2= Nausea/Diarrhea Tremor Observation: 0= None Yawning Observation: 0= None Anxiety or Irritability: 2=Irritable/Anxious Goose Flesh Skin: 0=Smooth Skin COWS Score: 12 CIWA Score - Admission Criteria OASAS Guidelines: Admission for Medically Managed Detox: Requires at least one of the followin. CIWA greater than 12 2. Seizures within the past 24 hours 3. Delirium tremens within the past 24 hours 4. Hallucinations within the past 24 hours 5. Acute intervention needed for co occurring medical disorder 6. Acute intervention needed for co occurring psychiatric disorder 7. Severe withdrawal that cannot be handled at a lower level of care (continued vomiting, continued diarrhea, abnormal vital signs) requiring intravenous medication and/or fluids 8. Admission ROS [facility] - HPI Allergies/Adverse Reactions: Allergies Allergy/AdvReac Type Severity Reaction Status Date / Time No Known Allergies Allergy Verified 02/23/18 14:29 History of Present Illness: patient here requesting detox from opiate use , reports 5 bags/ day via inhalation x 30 years , longest sobriety x 2 years with outpatient program [facility] [phone] , relapsed after leaving program . Latest use yesterday , current symptoms as above . Has been to this facility before, most recent detox about 6 weeks ago , planning to go to residential program after detox. utox + opi joan 0.000 tobacco : 4-5 cigs/day does not want nrt pmhx/pshx : denies psych : denies Shx : lives in [place] , unemployed Exam Limitations: Clinical Condition - Ebola screening Have you traveled outside of the country in the last 21 days: No Have you had contact with anyone from an Ebola affected area: No Have you been sick,other than usual withdrawal symptoms: No Do you have a fever: No - Review of Systems Constitutional: See HPI EENT: reports: Other (reading glasses , partial dentures) Respiratory: reports: No Symptoms reported Cardiac: reports: No Symptoms Reported GI: reports: See HPI : reports: No Symptoms Reported Musculoskeletal: reports: Muscle Pain Integumentary: reports: No Symptoms Reported Neuro: reports: No Symptoms reported Endocrine: reports: No Symptoms Reported Psychiatric: reports: Orientated x3, Anxious Patient History - Patient Medical History Hx Anemia: No Hx Asthma: No Hx Chronic Obstructive Pulmonary Disease (COPD): No Hx Cancer: No Hx Cardiac Disorders: No Hx Congestive Heart Failure: No Hx Hypertension: No Hx Hypercholesterolemia: No Hx Pacemaker: No HX Cerebrovascular Accident: No Hx Seizures: No Hx Dementia: No Hx Diabetes: No Hx Gastrointestinal Disorders: No Hx Liver Disease: No Hx Genitourinary Disorders: No Hx Sexually Transmitted Disorders: No Hx Renal Disease (ESRD): No Hx Thyroid Disease: No Hx Human Immunodeficiency Virus (HIV): No (last tested one year ago, declines furtehr testing at this time ) Hx Hepatitis C: No Hx Depression: No Hx Suicide Attempt: No Hx Bipolar Disorder: No Hx Schizophrenia: No - Patient Surgical History Past Surgical History: No Hx Neurologic Surgery: No Hx Cataract Extraction: No Hx Cardiac Surgery: No Hx Lung Surgery: No Hx Breast Surgery: No Hx Breast Biopsy: No Hx Abdominal Surgery: No Hx Appendectomy: No Hx Cholecystectomy: No Hx Genitourinary Surgery: No Hx Section: No Hx Orthopedic Surgery: No Other Surgical History: left inguinal hernia repair in 1978 Anesthesia Reaction: No - PPD History Previous Implant?: Yes Documented Results: Negative w/proof Implanted On Prior [facility] Admission?: Yes Date: 11/23/17 Results: 0 mm - Smoking Cessation Smoking history: Current every day smoker Have you smoked in the past 12 months: Yes Aproximately how many cigarettes per day: 10 Cigars Per Day: 0 Hx Chewing Tobacco Use: No Initiated information on smoking cessation: No - Substances Abused Heroin Route: Inhalation Frequency: Daily Amount used: 5 bags Age of first use: 24 Date of Last Use: 02/22/18 Family Disease History - Family Disease History Family Disease History: Heart Disease: Mother (d. 2000 ), Other: Father (d. at client age 11 ( murdered)), Brother (A & W ) Other Family History: no children Admission Physical Exam BHS - Vital Signs Vital Signs: Vital Signs - 24 hr 02/23/18 12:10 Temperature 98 F Pulse Rate 82 Respiratory 18 Rate Blood Pressure 121/79 - Physical General Appearance: Yes: Moderate Distress, Sweating, Anxious HEENTM: Yes: EOMI, Hearing grossly Normal, Normocephalic, Normal Voice Respiratory: Yes: Chest Non-Tender, Lungs Clear, Normal Breath Sounds Neck: Yes: Within Normal Limits, No masses,lesions,Nodules, Trachea in good position Breast: Yes: Breast Exam Deferred Cardiology: Yes: Regular Rhythm, Regular Rate, S1, S2 Abdominal: Yes: Within Normal Limits, Soft Genitourinary: Yes: Within Normal Limits Back: Yes: Normal Inspection Musculoskeletal: Yes: Gait Steady, Muscle Pain Extremities: Yes: Normal Capillary Refill, Normal Inspection Neurological: Yes: Fully Oriented, Motor Strength 5/5 Integumentary: Yes: Normal Color, Dry, Warm - Diagnostic (1) Nicotine dependence Current Visit: No Status: Chronic Qualifiers: Nicotine product type: cigarettes Substance use status: in withdrawal Qualified Code(s): F17.213 - Nicotine dependence, cigarettes, with withdrawal (2) Opioid dependence with withdrawal Current Visit: No Status: Acute (3) Recent weight loss Current Visit: No Status: Acute BHS Breath Alcohol Content Breath Alcohol Content: 0 Urine Drug Screen - Results Drug Screen Negative: No Urine Drug Screen Results: OPI-Opiates
[2018-02-23] MEDS ORDERED: P-EPHED 60MG/TRIPROLIDI 2.5MG TABLET PO PRN (14:59)
[2018-02-23] MEDS ORDERED: guaiFENesin/D-METHORPHAN HB 10 ML UNIT-DOSE CUPS PO PRN (14:59)
[2018-02-23] MEDS ORDERED: MAGNESIUM CITRATE 300 ML BOTTLE PO PRN (14:59)
[2018-02-23] MEDS ORDERED: MAG HYDROX/AL HYDROX/SIMETH 30 ML UNIT-DOSE CUP PO PRN (14:59)
[2018-02-23] MEDS ORDERED: MENTHOL/PHENOL 1 EACH UD MM PRN (14:59)
[2018-02-23] MEDS ORDERED: IBUPROFEN 400 MG TABLET (FP) PO PRN (14:59)
[2018-02-23] MEDS ORDERED: ACETAMINOPHEN 325 MG TABLET (FP) PO PRN (14:59)
[2018-02-23] MEDS ORDERED: MAGNESIUM HYDROX 2400MG/30ML ORAL SUSPENSION 30 ML CUP PO PRN (14:59)
[2018-02-23] MEDS ORDERED: METHADONE HCL 10 MG TABLET (FOR DETOX USE ONLY) PO ONE ×2 (15:45→23:00)
[2018-02-23] MEDS: PETROLATUM, WHITE 30 GM TUBE TP SCH (17:59)
[2018-02-23] MEDS ORDERED: MELATONIN 5 MG TABLETS PO PRN (22:00)
[2018-02-23] MEDS: THIAMINE HCL 100 MG TABLET (FP) PO SCH (22:55)
[2018-02-24] MEDS ORDERED: METHADONE HCL 10 MG TABLET (FOR DETOX USE ONLY) PO ONE (10:00)
[2018-02-24 10:35] LABS: HEMATOCRIT 38.3 % (35.4-49); HEMOGLOBIN 11.9 GM/dL (11.7-16.9); MCH 27.8 pg (25.7-33.7); MCHC 31.1 g/dl (32.0-35.9); MEAN CELL VOLUME 89.5 fl (80-96); MEAN PLT VOLUME 9.5 fl (7.5-11.1); PLATELET COUNT 232 K/MM3 (134-434); RBC 4.28 M/mm3 (4.00-5.60); RDW 13.4 % (11.9-15.9); WHITE BLOOD COUNT 5.3 K/mm3 (4.0-10.0)
[2018-02-24] MEDS: PETROLATUM, WHITE 30 GM TUBE TP SCH (10:39)
[2018-02-24] MEDS: PRENATAL VITAMINS W/ FOLIC ACID TABLET (FP) PO SCH (10:39)
[2018-02-24 11:14] LABS: ALBUMIN 4.1 g/dl (3.4-5.0); ALK PHOS 82 U/L (45-117); ANION GAP 5 MMOL/L (8-16); BILIRUBIN,TOTAL 0.4 mg/dL (0.2-1); BLOOD UREA NITROGEN 22 mg/dL (7-18); CALCIUM 9.1 mg/dL (8.5-10.1); CHLORIDE 104 mmol/L (98-107); CO2 32 mmol/L (21-32); CREATININE 1.1 mg/dL (0.55-1.3); GLUCOSE,RANDOM 66 mg/dL (74-106); POTASSIUM 5.1 mmol/L (3.5-5.1); SGOT/AST 26 U/L (15-37); SGPT/ALT 31 U/L (13-61); SODIUM 140 mmol/L (136-145)
--- NOTE | 2018-02-24 12:58 | PN ---
BHS COWS - Scale Resting Pulse: 0= [place] 80 or Below Sweatin=Flushed/Facial Moisture Restless Observation: 1= Difficult to Sit Still Pupil Size: 1= Pupils >than Normal Bone or Joint Aches: 1= Mild Discomfort Runny Nose/ Eye Tearin= Runny Nose/Eyes GI Upset > 30mins: 1= Stomach Cramp Tremor Observation of Outstretched Hands: 1= Tremor [place], Not Seen Yawning Observation: 0= None Anxiety or Irritability: 1=Feels Anxious/Irritable Goose Flesh Skin: 0=Smooth Skin COWS Score: 10 BHS Progress Note (SOAP) Subjective: interrupted sleep, sweaats Objective: 02/24/18 12:56 Vital Signs Temperature 97.7 F 02/24/18 10:04 Pulse Rate 71 02/24/18 10:04 Respiratory Rate 18 02/24/18 10:04 Blood Pressure 138/66 02/24/18 10:04 O2 Sat by Pulse Oximetry (%) Laboratory Tests 02/24/18 02/24/18 02/24/18 05:45 05:45 05:45 WBC 5.3 RBC 4.28 Hgb 11.9 Hct 38.3 MCV 89.5 MCH 27.8 MCHC 31.1 L RDW 13.4 Plt Count 232 MPV 9.5 Sodium 140 Potassium 5.1 Chloride 104 Carbon Dioxide 32 Anion Gap 5 L BUN 22 H Creatinine 1.1 Creat Clearance w eGFR > 60 Random Glucose 66 L Calcium 9.1 Total Bilirubin 0.4 AST 26 ALT 31 Alkaline Phosphatase 82 Total Protein 7.0 Albumin 4.1 HIV 1&2 Antibody Screen Negative HIV P24 Antigen Negative pt aox3 in nad ambulating Assessment: 02/24/18 12:56 withdrawal sx's Plan: cont. detox increase fluidsd
[2018-02-24] MEDS: THIAMINE HCL 100 MG TABLET (FP) PO SCH (22:29)
[2018-02-25] MEDS ORDERED: METHADONE HCL 5 MG TABLET (FOR DETOX USE ONLY) PO ONE (10:00)
[2018-02-25] MEDS: PRENATAL VITAMINS W/ FOLIC ACID TABLET (FP) PO SCH (10:28)
[2018-02-25] MEDS: PETROLATUM, WHITE 30 GM TUBE TP SCH (10:28)
--- NOTE | 2018-02-25 15:40 | PN ---
BHS COWS - Scale Resting Pulse: 0= [place] 80 or Below Sweatin= No chills or Flushing Restless Observation: 0= Sits Still Pupil Size: 0= Normal to Room Light Bone or Joint Aches: 0= None Runny Nose/ Eye Tearin= None GI Upset > 30mins: 0= None Tremor Observation of Outstretched Hands: 0= None Yawning Observation: 0= None Anxiety or Irritability: 0= None Goose Flesh Skin: 0=Smooth Skin COWS Score: 0 BHS Progress Note (SOAP) Subjective: Pt states he is feeling fine on the detox protocol- Vital Signs - 24 hr 02/24/18 02/24/18 02/25/18 18:46 22:28 00:30 Temperature 98 F 97.7 F Pulse Rate 68 69 Respiratory 18 18 18 Rate Blood Pressure 129/90 144/83 02/25/18 02/25/18 02/25/18 03:30 07:03 09:52 Temperature 97.2 F L Pulse Rate 61 79 Respiratory 18 18 18 Rate Blood Pressure 128/84 151/91 02/25/18 14:29 Temperature 98.2 F Pulse Rate 69 Respiratory 18 Rate Blood Pressure 142/83 Laboratory Tests 02/24/18 02/24/18 02/24/18 05:45 05:45 05:45 WBC 5.3 RBC 4.28 Hgb 11.9 Hct 38.3 MCV 89.5 MCH 27.8 MCHC 31.1 L RDW 13.4 Plt Count 232 MPV 9.5 Sodium 140 Potassium 5.1 Chloride 104 Carbon Dioxide 32 Anion Gap 5 L BUN 22 H Creatinine 1.1 Creat Clearance w eGFR > 60 Random Glucose 66 L Calcium 9.1 Total Bilirubin 0.4 AST 26 ALT 31 Alkaline Phosphatase 82 Total Protein 7.0 Albumin 4.1 RPR Titer HIV 1&2 Antibody Screen Negative HIV P24 Antigen Negative 02/24/18 05:45 WBC RBC Hgb Hct MCV MCH MCHC RDW Plt Count MPV Sodium Potassium Chloride Carbon Dioxide Anion Gap BUN Creatinine Creat Clearance w eGFR Random Glucose Calcium Total Bilirubin AST ALT Alkaline Phosphatase Total Protein Albumin RPR Titer Nonreactive HIV 1&2 Antibody Screen HIV P24 Antigen a/p: OUD- day #3 of detox protocol continue detox protocol
[2018-02-25] MEDS: THIAMINE HCL 100 MG TABLET (FP) PO SCH (23:11)
[2018-02-26] MEDS ORDERED: METHADONE HCL 10 MG TABLET (FOR DETOX USE ONLY) PO ONE (10:00)
[2018-02-26] MEDS: PETROLATUM, WHITE 30 GM TUBE TP SCH (10:18)
[2018-02-26] MEDS: PRENATAL VITAMINS W/ FOLIC ACID TABLET (FP) PO SCH (10:18)
--- NOTE | 2018-02-26 11:08 | PN ---
BHS Progress Note (SOAP) Subjective: body aches muscle cramping tremor restlessness Objective: 02/26/18 11:07 Vital Signs Temperature 97.3 F L 02/26/18 10:53 Pulse Rate 73 02/26/18 10:53 Respiratory Rate 18 02/26/18 10:53 Blood Pressure 143/97 02/26/18 10:53 O2 Sat by Pulse Oximetry (%) Laboratory Last Values WBC 5.3 K/mm3 (4.0-10.0) 02/24/18 05:45 RBC 4.28 M/mm3 (4.00-5.60) 02/24/18 05:45 Hgb 11.9 GM/dL (11.7-16.9) 02/24/18 05:45 Hct 38.3 % (35.4-49) 02/24/18 05:45 MCV 89.5 fl (80-96) 02/24/18 05:45 MCH 27.8 pg (25.7-33.7) 02/24/18 05:45 MCHC 31.1 g/dl (32.0-35.9) L 02/24/18 05:45 RDW 13.4 % (11.9-15.9) 02/24/18 05:45 Plt Count 232 K/MM3 (134-434) 02/24/18 05:45 MPV 9.5 fl (7.5-11.1) 02/24/18 05:45 Sodium 140 mmol/L (136-145) 02/24/18 05:45 Potassium 5.1 mmol/L (3.5-5.1) 02/24/18 05:45 Chloride 104 mmol/L (98-107) 02/24/18 05:45 Carbon Dioxide 32 mmol/L (21-32) 02/24/18 05:45 Anion Gap 5 MMOL/L (8-16) L 02/24/18 05:45 BUN 22 mg/dL (7-18) H 02/24/18 05:45 Creatinine 1.1 mg/dL (0.55-1.3) 02/24/18 05:45 Creat Clearance w eGFR > 60 (>60) 02/24/18 05:45 Random Glucose 66 mg/dL (74-106) L 02/24/18 05:45 Calcium 9.1 mg/dL (8.5-10.1) 02/24/18 05:45 Total Bilirubin 0.4 mg/dL (0.2-1) 02/24/18 05:45 AST 26 U/L (15-37) 02/24/18 05:45 ALT 31 U/L (13-61) 02/24/18 05:45 Alkaline Phosphatase 82 U/L (45-117) 02/24/18 05:45 Total Protein 7.0 g/dl (6.4-8.2) 02/24/18 05:45 Albumin 4.1 g/dl (3.4-5.0) 02/24/18 05:45 RPR Titer Nonreactive (NONREACTIVE) 02/24/18 05:45 HIV 1&2 Antibody Screen Negative 02/24/18 05:45 HIV P24 Antigen Negative 02/24/18 05:45 lab noted Assessment: 02/26/18 11:07 opiate withdrawal sx Plan: continue opiate detox
[2018-02-26] MEDS: THIAMINE HCL 100 MG TABLET (FP) PO SCH (22:49)
[2018-02-27] MEDS ORDERED: METHADONE HCL 5 MG TABLET (FOR DETOX USE ONLY) PO ONE (06:00)
[2018-02-27 06:57] VITALS: BP 141/69; PULSE 64; TEMP 97.7
--- NOTE | 2018-02-27 09:35 | DS ---
[facility] Detox Discharge Summary Admission Date: 02/23/18 Discharge Date: 02/27/18 - History Present History: Alcohol Dependence, Cocaine Dependence, Opioid Dependence - Physical Exam Results Vital Signs: Vital Signs Temperature 97.7 F 02/27/18 06:56 Pulse Rate 64 02/27/18 06:56 Respiratory Rate 18 02/27/18 06:56 Blood Pressure 141/69 02/27/18 06:56 O2 Sat by Pulse Oximetry (%) - Treatment Hospital Course: Detox Protocol Followed, Detoxed Safely, Responded well, Discharged Condition Good, Rehab Referral Accepted - Medication Discharge Medications: Ambulatory Orders NK [No Known Home Medication] 12/14/13 - Diagnosis (1) Cocaine dependence, uncomplicated Current Visit: Yes Status: Chronic (2) Opioid dependence with withdrawal Current Visit: Yes Status: Chronic (3) Recent weight loss Current Visit: No Status: Acute (4) Wheezing Current Visit: No Status: Acute (5) Withdrawal syndrome Current Visit: Yes Status: Chronic Qualifiers: Substance type: cocaine Qualified Code(s): F14.23 - Cocaine dependence with withdrawal (6) Nicotine dependence Current Visit: No Status: Chronic Qualifiers: Nicotine product type: cigarettes Substance use status: in withdrawal Qualified Code(s): F17.213 - Nicotine dependence, cigarettes, with withdrawal (7) Opioid dependence Current Visit: No Status: Chronic - AMA Did Patient Leave Against Medical Advice: No (going home)
== END 2018-02-27 09:26 | disposition home or self-care (01) | DRG 773 ==
LOC: YASAS 11:54 → Y6N 15:33
PROC: HZ2ZZZZ Detoxification Services for Substance Abuse Treatment (ICD-10-PCS; principal; 2018-02-23)
DX: F11.23 Opioid dependence with withdrawal (principal); F14.20 Cocaine dependence, uncomplicated; F17.213 Nicotine dependence, cigarettes, with withdrawal
CPT/HCPCS: 36415; 80053; 85027; 86593; 87389

== ENCOUNTER 2018-06-09 11:12 | Inpatient (IN) | payer OTHER ==
[2018-06-09 12:11] VITALS: BMI 20.9
--- NOTE | 2018-06-09 12:57 | HP ---
COWS - Scale Resting Pulse: 1= [place] 81-100 Sweatin= Chills/Flushing Restless Observation: 1= Difficult to Sit Still Pupil Size: 0= Normal to Room Light Bone or Joint Aches: 4=Acute Joint/Muscle Pain Runny Nose/ Eye Tearin= Runny Nose/Eyes GI Upset > 30mins: 3= Vomiting/Diarrhea Tremor Observation: 1= Tremor [place], Not Seen Yawning Observation: 0= None Anxiety or Irritability: 0= None Goose Flesh Skin: 0=Smooth Skin COWS Score: 13 CIWA Score - Admission Criteria OASAS Guidelines: Admission for Medically Managed Detox: Requires at least one of the followin. CIWA greater than 12 2. Seizures within the past 24 hours 3. Delirium tremens within the past 24 hours 4. Hallucinations within the past 24 hours 5. Acute intervention needed for co occurring medical disorder 6. Acute intervention needed for co occurring psychiatric disorder 7. Severe withdrawal that cannot be handled at a lower level of care (continued vomiting, continued diarrhea, abnormal vital signs) requiring intravenous medication and/or fluids 8. Admission ROS [facility] - HPI Allergies/Adverse Reactions: Allergies Allergy/AdvReac Type Severity Reaction Status Date / Time No Known Allergies Allergy Verified 06/09/18 12:43 History of Present Illness: patient here requesting detox from opiate use , reports 5-6 bags/ day via inhalation x 30 years , relapse after d/c from this facility " a few weeks later " longest sobriety x 2 years with outpatient program [facility] 2004- 2006 , relapsed after leaving program . Latest use Tuesday morning 4-5 bags via inhalation, current symptoms as above . Most recent detox February 2018 , planning to go to residential program after detox. Denies other detox since February 2018 utox + opi , + mtd ,fen , met joan 0.000 tobacco : 4-5 cigs/day does not want nrt pmhx/pshx : denies psych : denies , denies current SI / HI meds : denies Shx : lives in senior living , unemployed Exam Limitations: Clinical Condition - Ebola screening Have you traveled outside of the country in the last 21 days: No Have you had contact with anyone from an Ebola affected area: No Have you been sick,other than usual withdrawal symptoms: No - Review of Systems Constitutional: See HPI, Loss of Appetite EENT: reports: Nose Congestion Respiratory: reports: No Symptoms reported Cardiac: reports: No Symptoms Reported GI: reports: See HPI : reports: No Symptoms Reported Musculoskeletal: reports: Back Pain, Muscle Pain Integumentary: reports: No Symptoms Reported Neuro: reports: Headache Endocrine: reports: No Symptoms Reported Psychiatric: reports: Orientated x3 Patient History - Patient Medical History Hx Anemia: No Hx Asthma: No Hx Chronic Obstructive Pulmonary Disease (COPD): No Hx Cancer: No Hx Cardiac Disorders: No Hx Congestive Heart Failure: No Hx Hypertension: No Hx Hypercholesterolemia: No Hx Pacemaker: No HX Cerebrovascular Accident: No Hx Seizures: No Hx Dementia: No Hx Diabetes: No Hx Gastrointestinal Disorders: No Hx Liver Disease: No Hx Genitourinary Disorders: No Hx Sexually Transmitted Disorders: No Hx Renal Disease (ESRD): No Hx Thyroid Disease: No Hx Human Immunodeficiency Virus (HIV): No (last tested one year ago, declines furtehr testing at this time ) Hx Hepatitis C: No Hx Depression: No Hx Suicide Attempt: No Hx Bipolar Disorder: No Hx Schizophrenia: No - Patient Surgical History Past Surgical History: Yes Hx Neurologic Surgery: No Hx Cataract Extraction: No Hx Cardiac Surgery: No Hx Lung Surgery: No Hx Breast Surgery: No Hx Breast Biopsy: No Hx Abdominal Surgery: No Hx Appendectomy: No Hx Cholecystectomy: No Hx Genitourinary Surgery: No Hx Section: No Hx Orthopedic Surgery: No Other Surgical History: left inguinal hernia repair in 1978 Anesthesia Reaction: No - PPD History Previous Implant?: Yes Documented Results: Negative w/proof Implanted On Prior [facility] Admission?: Yes Date: 11/23/17 Results: 0 mm - Smoking Cessation Smoking history: Current every day smoker Have you smoked in the past 12 months: Yes Aproximately how many cigarettes per day: 10 Cigars Per Day: 0 Hx Chewing Tobacco Use: No Initiated information on smoking cessation: No - Substances Abused Heroin Route: Inhalation Frequency: Daily Amount used: 5-6 bags Age of first use: 24 Date of Last Use: 06/07/18 Family Disease History - Family Disease History Family Disease History: Heart Disease: Mother (d. 1999 ), Other: Father (d. at client age 11 ( murdered)), Brother (A & W ) Admission Physical Exam BHS - Vital Signs Vital Signs: Vital Signs - 24 hr 06/09/18 12:10 Temperature 97.6 F Pulse Rate 86 Respiratory 18 Rate Blood Pressure 132/82 - Physical General Appearance: Yes: Moderate Distress, Thin HEENTM: Yes: EOMI, Hearing grossly Normal, Normocephalic, Normal Voice Respiratory: Yes: Chest Non-Tender, Lungs Clear, Normal Breath Sounds Neck: Yes: No masses,lesions,Nodules, Trachea in good position Cardiology: Yes: Regular Rhythm, Regular Rate, S1, S2 Abdominal: Yes: Non Tender, Soft Genitourinary: Yes: Within Normal Limits Back: Yes: Normal Inspection Musculoskeletal: Yes: Gait Steady Extremities: Yes: Normal Capillary Refill, Normal Range of Motion, Non-Tender Neurological: Yes: Fully Oriented, Alert, Motor Strength 5/5 Integumentary: Yes: Normal Color, Warm - Diagnostic (1) Nicotine dependence Current Visit: Yes Status: Chronic Qualifiers: Nicotine product type: cigarettes (2) Opioid dependence with withdrawal Current Visit: Yes Status: Acute BHS Breath Alcohol Content Breath Alcohol Content: 0 Urine Drug Screen - Results Drug Screen Negative: No Urine Drug Screen Results: OPI-Opiates, MET-Methamphetamine, MTD-Methadone, FEN- Fentanyl Inpatient Rehab Admission - Rehab Decision to Admit Inpatient rehab admission?: No
[2018-06-09] MEDS ORDERED: cloNIDine HCL 0.1 MG TABLET PO PRN (12:59)
[2018-06-09] MEDS ORDERED: MENTHOL/PHENOL 1 EACH UD MM PRN (12:59)
[2018-06-09] MEDS ORDERED: METHOCARBAMOL 500 MG TABLET PO PRN (12:59)
[2018-06-09] MEDS ORDERED: ACETAMINOPHEN 325 MG TABLET (FP) PO PRN ×2 (12:59)
[2018-06-09] MEDS ORDERED: BISMUTH SUBSALICYLATE 524 MG/30 ML UD PO PRN (12:59)
[2018-06-09] MEDS ORDERED: MELATONIN 5 MG TABLETS PO PRN (12:59)
[2018-06-09] MEDS ORDERED: MAGNESIUM CITRATE 300 ML BOTTLE PO PRN (12:59)
[2018-06-09] MEDS ORDERED: IBUPROFEN 400 MG TABLET (FP) PO PRN (12:59)
[2018-06-09] MEDS ORDERED: MAGNESIUM HYDROX 2400MG/30ML ORAL SUSPENSION 30 ML CUP PO PRN (12:59)
[2018-06-09] MEDS ORDERED: MAG HYDROX/AL HYDROX/SIMETH 30 ML UNIT-DOSE CUP PO PRN (12:59)
[2018-06-09] MEDS ORDERED: NICOTINE POLACRILEX 2 MG GUM BUC PRN (12:59)
[2018-06-09] MEDS ORDERED: DICYCLOMINE HCL 10 MG CAPSULE PO PRN (12:59)
[2018-06-09] MEDS ORDERED: METHADONE HCL 10 MG TABLET (FOR DETOX USE ONLY) PO ONE (13:00)
[2018-06-09] MEDS ORDERED: ONDANSETRON *ODT* 4 MG TABLET SL ONE (14:20)
[2018-06-09] MEDS ORDERED: diazePAM 5 MG TABLET PO PRN (22:50)
[2018-06-09] MEDS: THIAMINE HCL 100 MG TABLET (FP) PO SCH (23:06)
[2018-06-10] MEDS ORDERED: METHADONE HCL 10 MG TABLET (FOR DETOX USE ONLY) PO ONE (10:00)
[2018-06-10] MEDS: PRENATAL VITAMINS W/ FOLIC ACID TABLET (FP) PO SCH (10:54)
[2018-06-10 11:01] LABS: HEMATOCRIT 41.7 % (35.4-49); HEMOGLOBIN 13.1 GM/dL (11.7-16.9); MCH 27.7 pg (25.7-33.7); MCHC 31.4 g/dl (32.0-35.9); MEAN CELL VOLUME 88.3 fl (80-96); MEAN PLT VOLUME 8.5 fl (7.5-11.1); PLATELET COUNT 392 K/MM3 (134-434); RBC 4.72 M/mm3 (4.00-5.60); RDW 13.1 % (11.9-15.9); WHITE BLOOD COUNT 12.3 K/mm3 (4.0-10.0)
[2018-06-10 11:05] LABS: ALBUMIN 4.4 g/dl (3.4-5.0); ALK PHOS 107 U/L (45-117); ANION GAP 5 MMOL/L (8-16); BILIRUBIN,TOTAL 0.4 mg/dL (0.2-1); BLOOD UREA NITROGEN 27 mg/dL (7-18); CALCIUM 9.7 mg/dL (8.5-10.1); CHLORIDE 96 mmol/L (98-107); CO2 35 mmol/L (21-32); CREATININE 1.2 mg/dL (0.55-1.3); GLUCOSE,RANDOM 100 mg/dL (74-106); POTASSIUM 4.4 mmol/L (3.5-5.1); SGOT/AST 36 U/L (15-37); SGPT/ALT 39 U/L (13-61); SODIUM 135 mmol/L (136-145); TOT PROT 8.1 g/dl (6.4-8.2)
--- NOTE | 2018-06-10 13:13 | PN ---
BHS COWS - Scale Resting Pulse: 0= [place] 80 or Below Sweatin= Chills/Flushing Restless Observation: 1= Difficult to Sit Still Pupil Size: 0= Normal to Room Light Bone or Joint Aches: 2= Severe Diffuse Aches Runny Nose/ Eye Tearin= Nasal Congestion GI Upset > 30mins: 2= Nausea/Diarrhea Tremor Observation of Outstretched Hands: 2= Slight Tremor Visible Yawning Observation: 0= None Anxiety or Irritability: 1=Feels Anxious/Irritable Goose Flesh Skin: 3=Piloerection COWS Score: 13 BHS Progress Note (SOAP) Subjective: Chills especially at night, tremors, interrupted sleep and anxiety Objective: 06/10/18 13:13 Vital Signs - 8 hr 06/10/18 06/10/18 08:27 09:40 Temperature 97.7 F 98.4 F Pulse Rate 74 83 Respiratory 18 18 Rate Blood Pressure 115/61 106/56 L Laboratory Last Values WBC 12.3 K/mm3 (4.0-10.0) H 06/10/18 05:35 RBC 4.72 M/mm3 (4.00-5.60) 06/10/18 05:35 Hgb 13.1 GM/dL (11.7-16.9) 06/10/18 05:35 Hct 41.7 % (35.4-49) 06/10/18 05:35 MCV 88.3 fl (80-96) 06/10/18 05:35 MCH 27.7 pg (25.7-33.7) 06/10/18 05:35 MCHC 31.4 g/dl (32.0-35.9) L 06/10/18 05:35 RDW 13.1 % (11.9-15.9) 06/10/18 05:35 Plt Count 392 K/MM3 (134-434) D 06/10/18 05:35 MPV 8.5 fl (7.5-11.1) D 06/10/18 05:35 Sodium 135 mmol/L (136-145) L 06/10/18 05:35 Potassium 4.4 mmol/L (3.5-5.1) 06/10/18 05:35 Chloride 96 mmol/L (98-107) L 06/10/18 05:35 Carbon Dioxide 35 mmol/L (21-32) H 06/10/18 05:35 Anion Gap 5 MMOL/L (8-16) L 06/10/18 05:35 BUN 27 mg/dL (7-18) H 06/10/18 05:35 Creatinine 1.2 mg/dL (0.55-1.3) 06/10/18 05:35 Creat Clearance w eGFR 62.63 (>60) 06/10/18 05:35 Random Glucose 100 mg/dL (74-106) 06/10/18 05:35 Calcium 9.7 mg/dL (8.5-10.1) 06/10/18 05:35 Total Bilirubin 0.4 mg/dL (0.2-1) 06/10/18 05:35 AST 36 U/L (15-37) 06/10/18 05:35 ALT 39 U/L (13-61) 06/10/18 05:35 Alkaline Phosphatase 107 U/L (45-117) 06/10/18 05:35 Total Protein 8.1 g/dl (6.4-8.2) 06/10/18 05:35 Albumin 4.4 g/dl (3.4-5.0) 06/10/18 05:35 RPR Titer Nonreactive (NONREACTIVE) 06/10/18 05:35 Labs noted Assessment: 06/10/18 13:13 Withdrawal sx Plan: Continue detox
[2018-06-10] MEDS: THIAMINE HCL 100 MG TABLET (FP) PO SCH (22:30)
[2018-06-10] MEDS: traZODone HCL 50 MG TABLET (FP) PO SCH (23:34)
[2018-06-11] MEDS ORDERED: METHADONE HCL 10 MG TABLET (FOR DETOX USE ONLY) PO ONE (10:00)
[2018-06-11] MEDS ORDERED: METHADONE (DETOX) 10 MG, METHADONE (DETOX) 5 MG PO ONE (10:00)
[2018-06-11] MEDS: PRENATAL VITAMINS W/ FOLIC ACID TABLET (FP) PO SCH (10:27)
[2018-06-11] MEDS ORDERED: METHADONE HCL 5 MG TABLET (FOR DETOX USE ONLY) ONE (10:28)
[2018-06-11] MEDS ORDERED: METHADONE HCL 10 MG TABLET (FOR DETOX USE ONLY) ONE (10:29)
--- NOTE | 2018-06-11 12:07 | PN ---
BHS COWS - Scale Resting Pulse: 1= [place] 81-100 Sweatin=Flushed/Facial Moisture Restless Observation: 1= Difficult to Sit Still Pupil Size: 0= Normal to Room Light Bone or Joint Aches: 2= Severe Diffuse Aches Runny Nose/ Eye Tearin= Nasal Congestion GI Upset > 30mins: 0= None Tremor Observation of Outstretched Hands: 2= Slight Tremor Visible Yawning Observation: 1= 1-2x During Session Anxiety or Irritability: 2=Irritable/Anxious Goose Flesh Skin: 0=Smooth Skin COWS Score: 12 BHS Progress Note (SOAP) Subjective: sweats shakes interrupted sleep body aches restless Objective: 06/11/18 12:06 Vital Signs Temperature 97.5 F L 06/11/18 09:57 Pulse Rate 76 06/11/18 09:57 Respiratory Rate 18 06/11/18 09:57 Blood Pressure 126/75 06/11/18 09:57 O2 Sat by Pulse Oximetry (%) Laboratory Tests 06/10/18 06/10/18 06/10/18 05:35 05:35 05:35 WBC 12.3 H RBC 4.72 Hgb 13.1 Hct 41.7 MCV 88.3 MCH 27.7 MCHC 31.4 L RDW 13.1 Plt Count 392 D MPV 8.5 D Sodium 135 L Potassium 4.4 Chloride 96 L Carbon Dioxide 35 H Anion Gap 5 L BUN 27 H Creatinine 1.2 Creat Clearance w eGFR 62.63 Random Glucose 100 Calcium 9.7 Total Bilirubin 0.4 AST 36 ALT 39 Alkaline Phosphatase 107 Total Protein 8.1 Albumin 4.4 RPR Titer Nonreactive aaox3 ambulating no acute distress Assessment: 06/11/18 12:06 withdrawal sx Plan: continue detox increase fluids
[2018-06-11] MEDS: traZODone HCL 50 MG TABLET (FP) PO SCH (22:44)
[2018-06-11] MEDS: THIAMINE HCL 100 MG TABLET (FP) PO SCH (22:44)
[2018-06-12] MEDS ORDERED: METHADONE HCL 10 MG TABLET (FOR DETOX USE ONLY) PO ONE (10:00)
--- NOTE | 2018-06-12 10:04 | PN ---
BHS Progress Note (SOAP) Subjective: feeling better anxiety Objective: 06/12/18 10:03 Vital Signs Temperature 96.4 F L 06/12/18 08:50 Pulse Rate 68 06/12/18 08:50 Respiratory Rate 18 06/12/18 08:50 Blood Pressure 156/98 06/12/18 08:50 O2 Sat by Pulse Oximetry (%) aaox3 ambulating no acute distress Assessment: 06/12/18 10:04 mild withdrawal sx Plan: continue detox increase fluids d/c in am
[2018-06-12] MEDS: PRENATAL VITAMINS W/ FOLIC ACID TABLET (FP) PO SCH (10:08)
[2018-06-12] MEDS: traZODone HCL 50 MG TABLET (FP) PO SCH (22:13)
[2018-06-12] MEDS: THIAMINE HCL 100 MG TABLET (FP) PO SCH (22:13)
[2018-06-13] MEDS ORDERED: METHADONE HCL 5 MG TABLET (FOR DETOX USE ONLY) PO ONE (06:00)
--- NOTE | 2018-06-13 08:52 | DS ---
[facility] Detox Discharge Summary Admission Date: 06/09/18 Discharge Date: 06/13/18 - History Present History: Cannabis Dependence, Cocaine Dependence, Opioid Dependence - Physical Exam Results Vital Signs: Vital Signs Temperature 97.7 F 06/13/18 06:00 Pulse Rate 68 06/13/18 06:00 Respiratory Rate 18 06/13/18 06:00 Blood Pressure 132/69 06/13/18 06:00 O2 Sat by Pulse Oximetry (%) - Treatment Hospital Course: Detox Protocol Followed, Detoxed Safely, Responded well, Discharged Condition Good, Rehab Referral Accepted - Medication Discharge Medications: Ambulatory Orders NK [No Known Home Medication] 12/14/13 - Diagnosis (1) Opioid dependence with withdrawal Current Visit: Yes Status: Chronic (2) Nicotine dependence Current Visit: Yes Status: Chronic Qualifiers: Nicotine product type: cigarettes Substance use status: uncomplicated Qualified Code(s): F17.210 - Nicotine dependence, cigarettes, uncomplicated (3) Recent weight loss Current Visit: No Status: Acute (4) Wheezing Current Visit: Yes Status: Chronic (5) Cocaine dependence, uncomplicated Current Visit: Yes Status: Chronic - AMA Did Patient Leave Against Medical Advice: No [facility]
[2018-06-13 09:37] VITALS: BP 147/76; PULSE 76; TEMP 98.1
[2018-06-13] MEDS: PRENATAL VITAMINS W/ FOLIC ACID TABLET (FP) PO SCH (10:13)
== END 2018-06-13 11:34 | disposition other institution (70) | DRG 773 ==
LOC: YASAS 11:12 → Y6N 14:07
PROVIDERS: ADMIT Surgery; ATTEND Surgery
PROC: HZ2ZZZZ Detoxification Services for Substance Abuse Treatment (ICD-10-PCS; principal; 2018-06-09)
DX: F11.23 Opioid dependence with withdrawal (principal); F14.20 Cocaine dependence, uncomplicated; F12.20 Cannabis dependence, uncomplicated; R06.2 Wheezing; R63.4 Abnormal weight loss; Z68.21 Body mass index [BMI] 21.0-21.9, adult; Z59.0 Homelessness
CPT/HCPCS: 36415; 80053; 85027; 86593; J0735; Q0162

== ENCOUNTER 2018-06-13 12:18 | Inpatient (IN) | payer OTHER ==
[2018-06-13] MEDS ORDERED: MENTHOL/PHENOL 1 EACH UD MM PRN (14:12)
[2018-06-13] MEDS ORDERED: IBUPROFEN 400 MG TABLET (FP) PO PRN (14:12)
[2018-06-13] MEDS ORDERED: guaiFENesin 200 MG/10 ML 10 ML UNIT-DOSE CUPS PO PRN (14:12)
[2018-06-13] MEDS ORDERED: P-EPHED 60MG/TRIPROLIDI 2.5MG TABLET PO PRN (14:12)
[2018-06-13] MEDS ORDERED: LOPERAMIDE HCL 2 MG CAPSULE PO PRN (14:12)
[2018-06-13] MEDS ORDERED: MAGNESIUM HYDROX 2400MG/30ML ORAL SUSPENSION 30 ML CUP PO PRN (14:12)
[2018-06-13] MEDS ORDERED: MAGNESIUM CITRATE 300 ML BOTTLE PO PRN (14:12)
[2018-06-13] MEDS ORDERED: hydrOXYzine PAMOATE 50 MG CAPSULE (FP) PO PRN (14:12)
[2018-06-13] MEDS ORDERED: MAG HYDROX/AL HYDROX/SIMETH 30 ML UNIT-DOSE CUP PO PRN (14:12)
[2018-06-13] MEDS ORDERED: NICOTINE POLACRILEX 4 MG GUM BUC PRN (14:12)
[2018-06-13] MEDS ORDERED: ACETAMINOPHEN 325 MG TABLET (FP) PO PRN (14:12)
--- NOTE | 2018-06-13 14:12 | HP ---
[facility] Rehab Assess/Revision - Admission History Admitted to Rehab from: Renee Loja Date of Admission to Rehab: 06/13/2018 - Vital signs Vital Signs: Vital Signs Period Temp Pulse Resp BP Sys/Basurto Pulse Ox Last 24 Hr 98.1 F 72 18 122/80 - Findings Detox History & Physical reviewed: Yes Concur with findings: Yes Inpatient Rehab Admission - Rehab Decision to Admit Inpatient rehab admission?: Yes - Initial Determination Are CD services needed?: Yes Free of communicable disease: Yes Not in need of hospitalization: Yes - Rehab Admission Criteria Previous failed treatment: Yes Poor recovery environment: Yes Comorbidities: Yes Lacks judgement: Yes Patient is meeting Inpatient Rehab admission criteria:: Yes
[2018-06-13] MEDS: THIAMINE HCL 100 MG TABLET (FP) PO SCH (21:35)
[2018-06-13] MEDS ORDERED: MELATONIN 5 MG TABLETS PO PRN (22:00)
[2018-06-14] MEDS: PRENATAL VITAMINS W/ FOLIC ACID TABLET (FP) PO SCH (10:23)
[2018-06-14] MEDS: NICOTINE 21 MG/24 HOURS TOPICAL PATCH TD SCH (10:23)
[2018-06-14] MEDS: THIAMINE HCL 100 MG TABLET (FP) PO SCH (21:59)
[2018-06-15] MEDS: NICOTINE 21 MG/24 HOURS TOPICAL PATCH TD SCH (10:06)
[2018-06-15] MEDS: PRENATAL VITAMINS W/ FOLIC ACID TABLET (FP) PO SCH (10:06)
[2018-06-15] MEDS: THIAMINE HCL 100 MG TABLET (FP) PO SCH (21:54)
[2018-06-16] MEDS: PRENATAL VITAMINS W/ FOLIC ACID TABLET (FP) PO SCH (10:08)
[2018-06-16] MEDS: NICOTINE 21 MG/24 HOURS TOPICAL PATCH TD SCH (10:09)
[2018-06-16] MEDS: THIAMINE HCL 100 MG TABLET (FP) PO SCH (22:13)
[2018-06-17 07:29] VITALS: BP 120/69; PULSE 68; TEMP 97.8
--- NOTE | 2018-06-17 11:00 | PN ---
[facility] Progress Note Note: Patient was admitted to rehab on 06/13 following detox treatment. He has requested to leave, encouraged patient to complete program but to no avail. As stated by patient, " I made my mind to come here and I'm making my mind to leave ", no further reason given. Patient discharged against medical advice
[2018-06-17] MEDS: NICOTINE 21 MG/24 HOURS TOPICAL PATCH TD SCH (11:17)
[2018-06-17] MEDS: PRENATAL VITAMINS W/ FOLIC ACID TABLET (FP) PO SCH (11:17)
== END 2018-06-17 10:45 | disposition left against medical advice (07) | DRG 770 ==
LOC: YASAS 12:18 → Y5N 12:19
PROVIDERS: ADMIT Neuromusculoskeletal Medicine & OMM; ATTEND Neuromusculoskeletal Medicine & OMM
PROC: HZ42ZZZ Group Counseling for Substance Abuse Treatment, Cognitive-Behavioral (ICD-10-PCS; principal; 2018-06-13)
DX: F11.20 Opioid dependence, uncomplicated (principal); F17.210 Nicotine dependence, cigarettes, uncomplicated

== ENCOUNTER 2018-11-04 09:21 | Inpatient (IN) | payer OTHER ==
[2018-11-04 10:27] VITALS: BMI 19.8
--- NOTE | 2018-11-04 11:10 | HP ---
COWS - Scale Resting Pulse: 0= [place] 80 or Below Sweatin= Chills/Flushing Restless Observation: 0= Sits Still Pupil Size: 0= Normal to Room Light Bone or Joint Aches: 2= Severe Diffuse Aches Runny Nose/ Eye Tearin= Nasal Congestion GI Upset > 30mins: 2= Nausea/Diarrhea Tremor Observation: 1= Tremor [place], Not Seen Yawning Observation: 1= 1-2x During Session Anxiety or Irritability: 2=Irritable/Anxious Goose Flesh Skin: 3=Piloerection COWS Score: 13 CIWA Score - Admission Criteria OASAS Guidelines: Admission for Medically Managed Detox: Requires at least one of the followin. CIWA greater than 12 2. Seizures within the past 24 hours 3. Delirium tremens within the past 24 hours 4. Hallucinations within the past 24 hours 5. Acute intervention needed for co occurring medical disorder 6. Acute intervention needed for co occurring psychiatric disorder 7. Severe withdrawal that cannot be handled at a lower level of care (continued vomiting, continued diarrhea, abnormal vital signs) requiring intravenous medication and/or fluids 8. Admission ROS [facility] Chief Complaint: Withdrawal symptoms. Allergies/Adverse Reactions: Allergies Allergy/AdvReac Type Severity Reaction Status Date / Time No Known Allergies Allergy Verified 06/13/18 13:19 History of Present Illness: 57 y.o. man with an extensive history of heroin dependence is here seeking detox services. Longest period of illicit drug abstinence has been 2 years while residing in an inpatient residential program. He was last here for detox in June,. Exam Limitations: No Limitations - Ebola screening Have you traveled outside of the country in the last 21 days: No (N) Have you had contact with anyone from an Ebola affected area: No Do you have a fever: No - Review of Systems Constitutional: Loss of Appetite, Unintentional Wgt. Loss EENT: reports: Tearing Respiratory: reports: No Symptoms reported Cardiac: reports: No Symptoms Reported GI: reports: Nausea : reports: No Symptoms Reported Musculoskeletal: reports: No Symptoms Reported Integumentary: reports: No Symptoms Reported Neuro: reports: No Symptoms reported Endocrine: reports: No Symptoms Reported Hematology: reports: No Symptoms Reported Psychiatric: reports: Orientated x3 Other Systems: Reviewed and Negative Patient History - Patient Medical History Hx Anemia: No Hx Asthma: No Hx Chronic Obstructive Pulmonary Disease (COPD): No Hx Cancer: No Hx Cardiac Disorders: No Hx Congestive Heart Failure: No Hx Hypertension: No Hx Hypercholesterolemia: No Hx Pacemaker: No HX Cerebrovascular Accident: No Hx Seizures: No Hx Dementia: No Hx Diabetes: No Hx Gastrointestinal Disorders: No Hx Liver Disease: No Hx Genitourinary Disorders: No Hx Sexually Transmitted Disorders: No Hx Renal Disease (ESRD): No Hx Thyroid Disease: No Hx Human Immunodeficiency Virus (HIV): No (last tested one year ago, declines furtehr testing at this time ) Hx Hepatitis C: No Hx Depression: No Hx Suicide Attempt: No Hx Bipolar Disorder: No Hx Schizophrenia: No - Patient Surgical History Past Surgical History: Yes Hx Neurologic Surgery: No Hx Cataract Extraction: No Hx Cardiac Surgery: No Hx Lung Surgery: No Hx Breast Surgery: No Hx Breast Biopsy: No Hx Abdominal Surgery: No Hx Appendectomy: No Hx Cholecystectomy: No Hx Genitourinary Surgery: No Hx Section: No Hx Orthopedic Surgery: No Other Surgical History: left inguinal hernia repair in 1978 Anesthesia Reaction: No - PPD History Previous Implant?: Yes Documented Results: Negative w/proof Implanted On Prior [facility] Admission?: Yes Date: 02/08/18 Results: 0 mm. PPD to be Administered?: No - Reproductive History Patient is a Female of Child Bearing Age (11 -55 yrs old): No - Smoking Cessation Smoking history: Current every day smoker Have you smoked in the past 12 months: Yes Aproximately how many cigarettes per day: 10 Cigars Per Day: 0 Hx Chewing Tobacco Use: No Initiated information on smoking cessation: Yes 'Breaking Loose' booklet given: 11/04/18 - Substance & Tx. History Hx Alcohol Use: No Hx Substance Use: Yes Substance Use Type: Heroin Hx Substance Use Treatment: Yes (Detox and rehab here ) - Substances abused Heroin Substance route: Inhalation Frequency: Daily Amount used: 5-6 bags Age of first use: 24 Date of last use: 11/03/18 Family Disease History - Family Disease History Family Disease History: Heart Disease: Mother (d. 1999 ), Other: Father (d. at client age 11 ( murdered)), Brother (A & W ) Admission Physical Exam BHS - Physical General Appearance: Yes: Irritable, Anxious HEENTM: Yes: Hearing grossly Normal, Normal ENT Inspection, Normocephalic Respiratory: Yes: Chest Non-Tender, Lungs Clear, Normal Breath Sounds, No Respiratory Distress, No Accessory Muscle Use Neck: Yes: No masses,lesions,Nodules Breast: Yes: Breast Exam Deferred Cardiology: Yes: Regular Rhythm, Regular Rate Abdominal: Yes: Normal Bowel Sounds, Non Tender Genitourinary: Yes: Other (No complaints reported) Back: Yes: Normal Inspection Musculoskeletal: Yes: full range of Motion, Gait Steady, Pelvis Stable Extremities: Yes: Normal Inspection Neurological: Yes: Alert, Normal Mood/Affect, Normal Response Integumentary: Yes: Normal Color, Dry, Warm Lymphatic: Yes: Within Normal Limits - Diagnostic (1) Nicotine dependence Current Visit: Yes Status: Chronic Qualifiers: Nicotine product type: cigarettes Substance use status: uncomplicated Qualified Code(s): F17.210 - Nicotine dependence, cigarettes, uncomplicated (2) Opioid dependence with withdrawal Current Visit: Yes Status: Chronic (3) Recent weight loss Current Visit: Yes Status: Acute Cleared for Admission S - Detox or Rehab [facility] Level of Care: Medically Managed Detox Regimen/Protocol: Methadone Breathalyzer - Breathalyzer Breathalyzer: 0 Urine Drug Screen - Test Device Lot number: [id number] Expiration date: 08/11/20 - Control Is test valid?: Yes - Results Drug screen NEGATIVE: No Urine drug screen results: MOP-Opiates, OXY-Oxycodone, MTD-Methadone Inpatient Rehab Admission - Rehab Decision to Admit Inpatient rehab admission?: No
[2018-11-04] MEDS ORDERED: MAGNESIUM CITRATE 300 ML BOTTLE PO PRN (11:11)
[2018-11-04] MEDS ORDERED: MELATONIN 5 MG TABLETS PO PRN (11:11)
[2018-11-04] MEDS ORDERED: BISMUTH SUBSALICYLATE 524 MG/30 ML UD PO PRN (11:11)
[2018-11-04] MEDS ORDERED: IBUPROFEN 400 MG TABLET (FP) PO PRN (11:11)
[2018-11-04] MEDS ORDERED: METHOCARBAMOL 500 MG TABLET PO PRN (11:11)
[2018-11-04] MEDS ORDERED: NALOXONE HCL 0.4 MG/ML VIAL IM PRN (11:11)
[2018-11-04] MEDS ORDERED: hydrOXYzine PAMOATE 25 MG CAPSULE (FP) PO PRN (11:11)
[2018-11-04] MEDS ORDERED: METHADONE HCL 10 MG TABLET (FOR DETOX USE ONLY) PO ONE (11:11)
[2018-11-04] MEDS ORDERED: MAG HYDROX/AL HYDROX/SIMETH 30 ML UNIT-DOSE CUP PO PRN (11:11)
[2018-11-04] MEDS ORDERED: clonazePAM 0.5 MG TABLET PO PRN (11:11)
[2018-11-04] MEDS ORDERED: MAGNESIUM HYDROX 2400MG/30ML ORAL SUSPENSION 30 ML CUP PO PRN (11:11)
[2018-11-04] MEDS ORDERED: cloNIDine HCL 0.1 MG TABLET PO PRN (11:11)
[2018-11-04] MEDS ORDERED: ACETAMINOPHEN 325 MG TABLET (FP) PO PRN ×2 (11:11)
[2018-11-04] MEDS ORDERED: MENTHOL/PHENOL 1 EACH UD MM PRN (11:11)
[2018-11-04] MEDS: THIAMINE HCL 100 MG TABLET (FP) PO SCH (22:45)
[2018-11-05 09:35] LABS: HEMATOCRIT 40.7 % (35.4-49); HEMOGLOBIN 13.2 GM/dL (11.7-16.9); MCH 29.2 pg (25.7-33.7); MCHC 32.5 g/dl (32.0-35.9); MEAN CELL VOLUME 89.7 fl (80-96); MEAN PLT VOLUME 8.5 fl (7.5-11.1); PLATELET COUNT 257 K/MM3 (134-434); RBC 4.53 M/mm3 (4.00-5.60); RDW 13.4 % (11.9-15.9); WHITE BLOOD COUNT 4.7 K/mm3 (4.0-10.0)
[2018-11-05 09:36] LABS: ALBUMIN 3.4 g/dl (3.4-5.0); BILIRUBIN,TOTAL 0.4 mg/dL (0.2-1); BLOOD UREA NITROGEN 15.8 mg/dL (7-18); CALCIUM 8.7 mg/dL (8.5-10.1); CREATININE 0.9 mg/dL (0.55-1.3); POTASSIUM 4.4 mmol/L (3.5-5.1); TOT PROT 6.1 g/dl (6.4-8.2)
[2018-11-05] MEDS: PRENATAL VITAMINS W/ FOLIC ACID TABLET (FP) PO SCH (09:45)
[2018-11-05] MEDS ORDERED: METHADONE HCL 5 MG TABLET (FOR DETOX USE ONLY) PO ONE (10:00)
--- NOTE | 2018-11-05 14:18 | PN ---
BHS COWS - Scale Resting Pulse: 0= [place] 80 or Below Sweatin= Chills/Flushing Restless Observation: 3= Extraneous Movement Pupil Size: 0= Normal to Room Light Bone or Joint Aches: 2= Severe Diffuse Aches Runny Nose/ Eye Tearin= Runny Nose/Eyes GI Upset > 30mins: 1= Stomach Cramp Tremor Observation of Outstretched Hands: 2= Slight Tremor Visible Yawning Observation: 0= None Anxiety or Irritability: 2=Irritable/Anxious Goose Flesh Skin: 0=Smooth Skin COWS Score: 13 BHS Progress Note (SOAP) Subjective: Restless, nausea, interrupted sleep Objective: 11/05/18 14:13 Last Vital Signs Temp Pulse Resp BP Pulse Ox 98.1 F 64 16 142/104 H 11/05/18 13:04 11/05/18 13:04 11/05/18 13:04 11/05/18 13:04 Elevated b/p noted (142/104, denies htn) Laboratory Tests 11/05/18 11/05/18 11/05/18 07:45 07:45 07:45 WBC 4.7 RBC 4.53 Hgb 13.2 Hct 40.7 MCV 89.7 MCH 29.2 MCHC 32.5 RDW 13.4 Plt Count 257 D MPV 8.5 Sodium 142 Potassium 4.4 Chloride 104 Carbon Dioxide 36 H Anion Gap 2 L BUN 15.8 Creatinine 0.9 Est GFR (CKD-EPI)AfAm 110.27 Est GFR (CKD-EPI)NonAf 95.14 Random Glucose 71 L Calcium 8.7 Total Bilirubin 0.4 AST 21 ALT 22 Alkaline Phosphatase 80 Total Protein 6.1 L Albumin 3.4 RPR Titer Nonreactive Labs reviewed Assessment: 11/05/18 14:18 Withdrawal sxs Elevated b/p noted Plan: Continue detox Encouraged PO water intake Elevated b/p: continue clonidine prn
[2018-11-05] MEDS: THIAMINE HCL 100 MG TABLET (FP) PO SCH (23:33)
[2018-11-06] MEDS: PRENATAL VITAMINS W/ FOLIC ACID TABLET (FP) PO SCH (09:42)
[2018-11-06] MEDS ORDERED: METHADONE HCL 10 MG TABLET (FOR DETOX USE ONLY) PO ONE (10:00)
[2018-11-06] MEDS ORDERED: cloNIDine HCL 0.1 MG TABLET PO PRN (11:11)
[2018-11-06] MEDS ORDERED: hydrOXYzine PAMOATE 25 MG CAPSULE (FP) PO PRN (11:11)
--- NOTE | 2018-11-06 11:16 | PN ---
BHS COWS - Scale Resting Pulse: 1= [place] 81-100 Sweatin= Chills/Flushing Restless Observation: 1= Difficult to Sit Still Pupil Size: 1= Pupils >than Normal Bone or Joint Aches: 1= Mild Discomfort Runny Nose/ Eye Tearin= Nasal Congestion GI Upset > 30mins: 1= Stomach Cramp Tremor Observation of Outstretched Hands: 1= Tremor [place], Not Seen Yawning Observation: 1= 1-2x During Session Anxiety or Irritability: 1=Feels Anxious/Irritable Goose Flesh Skin: 0=Smooth Skin COWS Score: 10 BHS Progress Note (SOAP) Subjective: Pt states having a few withdrawal sx- would like prn meds O: Vital Signs - 24 hr 11/05/18 11/05/18 11/05/18 13:04 16:43 21:17 Temperature 98.1 F 97.7 F 97.7 F Pulse Rate 64 59 L 67 Respiratory 16 16 16 Rate Blood Pressure 142/104 H 134/76 124/84 11/06/18 11/06/18 11/06/18 00:30 03:30 06:00 Temperature 97.7 F Pulse Rate 59 L Respiratory 18 18 18 Rate Blood Pressure 119/78 11/06/18 09:19 Temperature 98.1 F Pulse Rate 67 Respiratory 18 Rate Blood Pressure 149/95 Laboratory Tests 11/05/18 11/05/18 11/05/18 07:45 07:45 07:45 WBC 4.7 RBC 4.53 Hgb 13.2 Hct 40.7 MCV 89.7 MCH 29.2 MCHC 32.5 RDW 13.4 Plt Count 257 D MPV 8.5 Sodium 142 Potassium 4.4 Chloride 104 Carbon Dioxide 36 H Anion Gap 2 L BUN 15.8 Creatinine 0.9 Est GFR (CKD-EPI)AfAm 110.27 Est GFR (CKD-EPI)NonAf 95.14 Random Glucose 71 L Calcium 8.7 Total Bilirubin 0.4 AST 21 ALT 22 Alkaline Phosphatase 80 Total Protein 6.1 L Albumin 3.4 RPR Titer Nonreactive a/p: continue opioid detox protocol prn meds ordered
[2018-11-06] MEDS: THIAMINE HCL 100 MG TABLET (FP) PO SCH (22:34)
[2018-11-07] MEDS ORDERED: METHADONE HCL 5 MG TABLET (FOR DETOX USE ONLY) PO ONE (06:00)
[2018-11-07 09:25] VITALS: BP 119/75; PULSE 64; TEMP 98.1
--- NOTE | 2018-11-07 09:46 | DS ---
[facility] Detox Discharge Summary Admission Date: 11/04/18 Discharge Date: 11/07/18 - History Present History: Cocaine Dependence, Opioid Dependence - Physical Exam Results Vital Signs: Vital Signs Temperature 98.1 F 11/07/18 09:24 Pulse Rate 64 11/07/18 09:24 Respiratory Rate 16 11/07/18 09:24 Blood Pressure 119/75 11/07/18 09:24 O2 Sat by Pulse Oximetry (%) Pertinent Admission Physical Exam Findings: pt arrived in withdrawals Laboratory Tests 11/05/18 11/05/18 11/05/18 07:45 07:45 07:45 WBC 4.7 RBC 4.53 Hgb 13.2 Hct 40.7 MCV 89.7 MCH 29.2 MCHC 32.5 RDW 13.4 Plt Count 257 D MPV 8.5 Sodium 142 Potassium 4.4 Chloride 104 Carbon Dioxide 36 H Anion Gap 2 L BUN 15.8 Creatinine 0.9 Est GFR (CKD-EPI)AfAm 110.27 Est GFR (CKD-EPI)NonAf 95.14 Random Glucose 71 L Calcium 8.7 Total Bilirubin 0.4 AST 21 ALT 22 Alkaline Phosphatase 80 Total Protein 6.1 L Albumin 3.4 RPR Titer Nonreactive today pt is aaox3 ambulating no acute distress no s/s of withdrawal sx - Treatment Hospital Course: Detox Protocol Followed, Detoxed Safely, Responded well, Discharged Condition Good, Rehab Referral Accepted Patient has Accepted a Rehab Referral to: referred [facility] - Medication Discharge Medications: Ambulatory Orders NK [No Known Home Medication] 12/14/13 - Diagnosis (1) Nicotine dependence Current Visit: Yes Status: Chronic Qualifiers: Nicotine product type: cigarettes Substance use status: uncomplicated Qualified Code(s): F17.210 - Nicotine dependence, cigarettes, uncomplicated (2) Opioid dependence with withdrawal Current Visit: Yes Status: Chronic (3) Cocaine dependence, uncomplicated Current Visit: Yes Status: Chronic - AMA Did Patient Leave Against Medical Advice: No
== END 2018-11-07 09:26 | disposition home or self-care (01) | DRG 773 ==
LOC: YASAS 09:21 → Y6N 12:21
PROVIDERS: ADMIT Surgery; ATTEND Surgery
PROC: HZ2ZZZZ Detoxification Services for Substance Abuse Treatment (ICD-10-PCS; principal; 2018-11-04)
DX: F11.23 Opioid dependence with withdrawal (principal); F17.210 Nicotine dependence, cigarettes, uncomplicated; R03.0 Elevated blood-pressure reading, without diagnosis of hypertension; R63.4 Abnormal weight loss; Z59.0 Homelessness
CPT/HCPCS: 36415; 80053; 85027; 86593; J0735

== ENCOUNTER 2019-03-05 01:27 | Inpatient (IN) | payer OTHER ==
[2019-03-05 01:22] VITALS: BMI 22.8
--- NOTE | 2019-03-05 01:27 | HP ---
COWS - Scale Resting Pulse: 1= [place] 81-100 Sweatin=Flushed/Facial Moisture Restless Observation: 1= Difficult to Sit Still Pupil Size: 0= Normal to Room Light Bone or Joint Aches: 2= Severe Diffuse Aches Runny Nose/ Eye Tearin= Runny Nose/Eyes GI Upset > 30mins: 3= Vomiting/Diarrhea (diarrhe x 2, vomiting x 6) Tremor Observation: 2= Slight Tremor Visible Yawning Observation: 0= None Anxiety or Irritability: 1=Feels Anxious/Irritable Goose Flesh Skin: 0=Smooth Skin COWS Score: 14 CIWA Score - Admission Criteria OASAS Guidelines: Admission for Medically Managed Detox: Requires at least one of the followin. CIWA greater than 12 2. Seizures within the past 24 hours 3. Delirium tremens within the past 24 hours 4. Hallucinations within the past 24 hours 5. Acute intervention needed for co occurring medical disorder 6. Acute intervention needed for co occurring psychiatric disorder 7. Severe withdrawal that cannot be handled at a lower level of care (continued vomiting, continued diarrhea, abnormal vital signs) requiring intravenous medication and/or fluids 8. Admitting History and Physical - Smoking History Smoking history: Current every day smoker Have you smoked in the past 12 months: Yes Aproximately how many cigarettes per day: 10 - Alcohol/Substance Use Hx Alcohol Use: No Admission ROS [facility] Chief Complaint: Seeking admission to detox from heroin Allergies/Adverse Reactions: Allergies Allergy/AdvReac Type Severity Reaction Status Date / Time No Known Allergies Allergy Verified 06/13/18 13:19 History of Present Illness: 58 years old male is seeking admission to detox from heroin. He reports insignificant period of abstinence. Patient denies past medical and psychiatric history. 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 His urine drug screen is positive for opioids. Exam Limitations: No Limitations - Ebola screening Have you traveled outside of the country in the last 21 days: No Have you had contact with anyone from an Ebola affected area: No Have you been sick,other than usual withdrawal symptoms: No - Review of Systems Constitutional: Chills, Loss of Appetite, Changes in sleep, Weakness EENT: reports: No Symptoms Reported, Nose Congestion Respiratory: reports: No Symptoms reported Cardiac: reports: No Symptoms Reported GI: reports: Diarrhea, Poor Appetite, Poor Fluid Intake, Vomiting, Abdominal cramping : reports: No Symptoms Reported, Hematuria Integumentary: reports: Bruising, Flushing, Rash Neuro: reports: Tremors Endocrine: reports: Increased Urine Hematology: reports: No Symptoms Reported Psychiatric: reports: No Sypmtoms Reported, Agitated, Anxious, Depressed Other Systems: Reviewed and Negative Patient History - Patient Medical History Hx Anemia: No Hx Asthma: No Hx Chronic Obstructive Pulmonary Disease (COPD): No Hx Cancer: No Hx Cardiac Disorders: No Hx Congestive Heart Failure: No Hx Hypertension: No Hx Hypercholesterolemia: No Hx Pacemaker: No HX Cerebrovascular Accident: No Hx Seizures: No Hx Dementia: No Hx Diabetes: No Hx Gastrointestinal Disorders: No Hx Liver Disease: No Hx Genitourinary Disorders: No Hx Sexually Transmitted Disorders: No Hx Renal Disease (ESRD): No Hx Thyroid Disease: No Hx Human Immunodeficiency Virus (HIV): No (last tested one year ago, declines furtehr testing at this time ) Hx Hepatitis C: No Hx Depression: No Hx Suicide Attempt: No Hx Bipolar Disorder: No Hx Schizophrenia: No - Patient Surgical History Past Surgical History: Yes Hx Neurologic Surgery: No Hx Cataract Extraction: No Hx Cardiac Surgery: No Hx Lung Surgery: No Hx Breast Surgery: No Hx Breast Biopsy: No Hx Abdominal Surgery: No Hx Appendectomy: No Hx Cholecystectomy: No Hx Genitourinary Surgery: No Hx Section: No Hx Orthopedic Surgery: No Other Surgical History: left inguinal hernia repair in 1978 Anesthesia Reaction: No - PPD History Previous Implant?: Yes Documented Results: Negative w/o proof Implanted On Prior [facility] Admission?: No Date: 02/08/18 Results: 0 mm. PPD to be Administered?: Yes - Smoking Cessation Smoking history: Current every day smoker Have you smoked in the past 12 months: Yes Aproximately how many cigarettes per day: 10 Cigars Per Day: 0 Hx Chewing Tobacco Use: No Initiated information on smoking cessation: Yes 'Breaking Loose' booklet given: 03/05/19 - Substance & Tx. History Hx Alcohol Use: No Hx Substance Use: Yes Substance Use Type: Heroin Hx Substance Use Treatment: Yes ([facility]) - Substances abused Heroin Substance route: Inhalation Frequency: Daily Amount used: 5-6 bags Age of first use: 24 Date of last use: 11/03/18 Alcohol Substance route: Inhalation Frequency: Daily Amount used: 5-6 bags Age of first use: 24 Date of last use: 11/03/18 Admission Physical Exam [facility] - Vital Signs Vital Signs: Vital Signs - 24 hr 03/05/19 01:20 Temperature 98.1 F Pulse Rate 96 H Respiratory 18 Rate Blood Pressure 132/86 - Physical General Appearance: Yes: Within Normal Limits HEENTM: Yes: Within Normal Limits, Hearing grossly Normal, Normal ENT Inspection Respiratory: Yes: Chest Non-Tender, Lungs Clear Neck: Yes: Supple Breast: Yes: Breast Exam Deferred Cardiology: Yes: Tachycardia Abdominal: Yes: Normal Bowel Sounds, Soft Genitourinary: Yes: Within Normal Limits Back: Yes: Normal Inspection Musculoskeletal: Yes: Within Normal Limits Extremities: Yes: Normal Inspection Neurological: Yes: Within Normal Limits, Fully Oriented Integumentary: Yes: Warm Lymphatic: Yes: Within Normal Limits - Diagnostic (1) Nicotine dependence Current Visit: No Status: Chronic Qualifiers: Nicotine product type: cigarettes Substance use status: uncomplicated Qualified Code(s): F17.210 - Nicotine dependence, cigarettes, uncomplicated (2) Opioid dependence with withdrawal Current Visit: No Status: Chronic Cleared for Admission [facility] - Detox or Rehab [facility] Level of Care: Medically Managed Detox Regimen/Protocol: Methadone Screened but not Admitted - Documentation of Visit Screened but not Admitted: No Breathalyzer - Breathalyzer Breathalyzer: 0 Urine Drug Screen - Test Device Lot number: [id number] Expiration date: 10/11/20 - Control Is test valid?: Yes - Results Drug screen NEGATIVE: No Urine drug screen results: MOP-Opiates Inpatient Rehab Admission - Rehab Decision to Admit Inpatient rehab admission?: No
[2019-03-05] MEDS ORDERED: NICOTINE POLACRILEX 2 MG GUM BUC PRN (01:44)
[2019-03-05] MEDS ORDERED: MAGNESIUM HYDROXIDE 400 MG/5 ML SUSPENSION PO PRN (01:44)
[2019-03-05] MEDS ORDERED: hydrOXYzine PAMOATE 25 MG CAPSULE (FP) PO PRN (01:44)
[2019-03-05] MEDS ORDERED: METHOCARBAMOL 500 MG TABLET PO PRN (01:44)
[2019-03-05] MEDS ORDERED: BISMUTH SUBSALICYLATE 524 MG/30 ML UD PO PRN (01:44)
[2019-03-05] MEDS ORDERED: MELATONIN 5 MG TABLETS PO PRN (01:44)
[2019-03-05] MEDS ORDERED: cloNIDine HCL 0.1 MG TABLET PO PRN (01:44)
[2019-03-05] MEDS ORDERED: METHADONE HCL 10 MG TABLET (FOR DETOX USE ONLY) PO ONE (01:44)
[2019-03-05] MEDS ORDERED: MAG HYDROX/AL HYDROX/SIMETH 30 ML UNIT-DOSE CUP PO PRN (01:44)
[2019-03-05] MEDS ORDERED: MAGNESIUM CITRATE 300 ML BOTTLE PO PRN (01:44)
[2019-03-05] MEDS ORDERED: IBUPROFEN 400 MG TABLET (FP) PO PRN (01:44)
[2019-03-05] MEDS ORDERED: MENTHOL/PHENOL 1 EACH UD MM PRN (01:44)
[2019-03-05] MEDS ORDERED: ACETAMINOPHEN 325 MG TABLET (FP) PO PRN ×2 (01:44)
[2019-03-05] MEDS ORDERED: chlordiazePOXIDE HCL 10 MG CAPSULE PO PRN (01:49)
[2019-03-05] MEDS ORDERED: chlordiazePOXIDE HCL 25 MG CAPSULE PO SCH (05:00)
--- NOTE | 2019-03-05 09:40 | PN ---
BHS COWS - Scale Resting Pulse: 1= [place] 81-100 Sweatin= Chills/Flushing Restless Observation: 1= Difficult to Sit Still Pupil Size: 1= Pupils >than Normal Bone or Joint Aches: 1= Mild Discomfort Runny Nose/ Eye Tearin= Runny Nose/Eyes GI Upset > 30mins: 2= Nausea/Diarrhea Tremor Observation of Outstretched Hands: 1= Tremor [place], Not Seen Yawning Observation: 1= 1-2x During Session Anxiety or Irritability: 2=Irritable/Anxious Goose Flesh Skin: 0=Smooth Skin COWS Score: 13 S Progress Note (SOAP) Subjective: alert,irritable,anxious,interrupted sleep,pain in the body and back Objective: 03/05/19 09:39 Vital Signs Temperature 97.5 F L 03/05/19 09:09 Pulse Rate 92 H 03/05/19 09:09 Respiratory Rate 18 03/05/19 09:09 Blood Pressure 133/85 03/05/19 09:09 O2 Sat by Pulse Oximetry (%) Assessment: 03/05/19 09:40 withdrawal symptom Plan: continue detox methadone regimen
[2019-03-05] MEDS: PRENATAL VITAMINS W/ FOLIC ACID TABLET (FP) PO SCH (10:35)
[2019-03-05] MEDS: NICOTINE 14 MG/24 HOURS TOPICAL PATCH TD SCH (10:36)
--- NOTE | 2019-03-05 13:39 | EKG ---
Test Reason : Blood Pressure : / mmHG Vent. Rate : 090 BPM Atrial Rate : 090 BPM P-R Int : 168 ms QRS Dur : 088 ms QT Int : 356 ms P-R-T Axes : -08 -10 -01 degrees QTc Int : 435 ms NORMAL SINUS RHYTHM MODERATE VOLTAGE CRITERIA FOR LVH, MAY BE NORMAL VARIANT NONSPECIFIC ST ABNORMALITY ABNORMAL ECG WHEN COMPARED WITH ECG OF 21-NOV-2017 22:03, VENT. RATE HAS INCREASED Confirmed by KATIE CHAN, DARIUS ([id number]) on 03/05/2019 1:39:08 PM Referred By: JOHN PAUL Confirmed By:DARIUS WILSON MD
[2019-03-05] MEDS: THIAMINE HCL 100 MG TABLET (FP) PO SCH (21:12)
[2019-03-06] MEDS ORDERED: chlordiazePOXIDE 5 MG CAPSULE PO SCH (05:00)
--- NOTE | 2019-03-06 09:15 | PN ---
BHS COWS - Scale Resting Pulse: 0= [place] 80 or Below Sweatin= Beads of Sweat on Face Restless Observation: 1= Difficult to Sit Still Pupil Size: 0= Normal to Room Light Bone or Joint Aches: 1= Mild Discomfort Runny Nose/ Eye Tearin= None GI Upset > 30mins: 0= None Tremor Observation of Outstretched Hands: 0= None Yawning Observation: 1= 1-2x During Session Anxiety or Irritability: 2=Irritable/Anxious Goose Flesh Skin: 0=Smooth Skin COWS Score: 8 BHS Progress Note (SOAP) Subjective: c/o sweats, interrupted sleep, anxiety, mild muscle aches, and dry cough. Objective: 03/06/19 09:23 Vital Signs 03/06/19 03/06/19 03/06/19 03:30 05:41 06:30 Temperature 97.3 F L Pulse Rate 68 Respiratory 18 18 18 Rate Blood Pressure 134/77 03/06/19 09:20 Temperature 97.7 F Pulse Rate 78 Respiratory 18 Rate Blood Pressure 142/80 Labs pending. Assessment: 03/06/19 09:17 AOX3, in no acute respiratory distress. Full ROM, ambulating in the unit. Withdrawal symptoms. Plan: continue detox. Robitussin 10ml po Q6hrs prn for cough.
[2019-03-06] MEDS ORDERED: METHADONE HCL 5 MG TABLET (FOR DETOX USE ONLY) PO ONE (10:00)
[2019-03-06] MEDS: NICOTINE 14 MG/24 HOURS TOPICAL PATCH TD SCH (10:06)
[2019-03-06] MEDS: PRENATAL VITAMINS W/ FOLIC ACID TABLET (FP) PO SCH (10:06)
[2019-03-06] MEDS: guaiFENesin 200 MG/10 ML 10 ML UNIT-DOSE CUPS PO PRN ×2 (10:06→22:13)
[2019-03-06 10:26] LABS: HEMATOCRIT 38.4 % (35.4-49); HEMOGLOBIN 12.2 GM/dL (11.7-16.9); MCH 29.1 pg (25.7-33.7); MCHC 31.8 g/dl (32.0-35.9); MEAN CELL VOLUME 91.6 fl (80-96); MEAN PLT VOLUME 9.1 fl (7.5-11.1); PLATELET COUNT 229 K/MM3 (134-434); RBC 4.19 M/mm3 (4.00-5.60)
[2019-03-06 11:41] LABS: ALBUMIN 3.2 g/dl (3.4-5.0); BILIRUBIN,TOTAL 0.3 mg/dL (0.2-1); BLOOD UREA NITROGEN 12.8 mg/dL (7-18); CALCIUM 8.6 mg/dL (8.5-10.1); CREATININE 0.9 mg/dL (0.55-1.3); POTASSIUM 4.1 mmol/L (3.5-5.1); TOT PROT 5.7 g/dl (6.4-8.2)
[2019-03-06] MEDS: THIAMINE HCL 100 MG TABLET (FP) PO SCH (22:13)
[2019-03-07] MEDS ORDERED: chlordiazePOXIDE HCL 10 MG CAPSULE PO PRN
[2019-03-07] MEDS ORDERED: chlordiazePOXIDE HCL 10 MG CAPSULE PO SCH (05:00)
--- NOTE | 2019-03-07 09:41 | PN ---
BHS COWS - Scale Resting Pulse: 0= [place] 80 or Below Sweatin= No chills or Flushing Restless Observation: 1= Difficult to Sit Still Pupil Size: 0= Normal to Room Light Bone or Joint Aches: 0= None Runny Nose/ Eye Tearin= Nasal Congestion GI Upset > 30mins: 0= None Tremor Observation of Outstretched Hands: 0= None Yawning Observation: 0= None Anxiety or Irritability: 1=Feels Anxious/Irritable Goose Flesh Skin: 0=Smooth Skin COWS Score: 3 BHS Progress Note (SOAP) Subjective: feeling better little sweats Objective: 03/07/19 09:41 Vital Signs Temperature 98.1 F 03/07/19 09:12 Pulse Rate 75 03/07/19 09:12 Respiratory Rate 18 03/07/19 09:12 Blood Pressure 147/95 03/07/19 09:12 O2 Sat by Pulse Oximetry (%) aaox3 ambulating no acute distress Assessment: 03/07/19 09:41 mild withdrawals Plan: continue detox d/c in am
[2019-03-07] MEDS ORDERED: METHADONE HCL 10 MG TABLET (FOR DETOX USE ONLY) PO ONE (10:00)
[2019-03-07] MEDS: guaiFENesin 200 MG/10 ML 10 ML UNIT-DOSE CUPS PO PRN ×2 (10:06→22:15)
[2019-03-07] MEDS: NICOTINE 14 MG/24 HOURS TOPICAL PATCH TD SCH (10:06)
[2019-03-07] MEDS: PRENATAL VITAMINS W/ FOLIC ACID TABLET (FP) PO SCH (10:06)
[2019-03-07] MEDS: THIAMINE HCL 100 MG TABLET (FP) PO SCH (22:14)
[2019-03-08] MEDS ORDERED: chlordiazePOXIDE HCL 10 MG CAPSULE PO ONE (05:00)
[2019-03-08] MEDS ORDERED: METHADONE HCL 5 MG TABLET (FOR DETOX USE ONLY) PO ONE (06:00)
--- NOTE | 2019-03-08 09:03 | DS ---
[facility] Detox Discharge Summary Admission Date: 03/05/19 Discharge Date: 03/08/19 - History Present History: Cocaine Dependence, Opioid Dependence - Physical Exam Results Vital Signs: Vital Signs Temperature 97.7 F 03/08/19 06:28 Pulse Rate 71 03/08/19 06:28 Respiratory Rate 18 03/08/19 06:28 Blood Pressure 128/79 03/08/19 06:28 O2 Sat by Pulse Oximetry (%) Pertinent Admission Physical Exam Findings: Vital Signs Temperature 97.9 F 03/08/19 09:10 Pulse Rate 76 03/08/19 09:10 Respiratory Rate 16 03/08/19 09:10 Blood Pressure 142/88 03/08/19 09:10 O2 Sat by Pulse Oximetry (%) Laboratory Tests 03/06/19 03/06/19 03/06/19 07:00 07:00 07:00 WBC 7.0 RBC 4.19 Hgb 12.2 Hct 38.4 MCV 91.6 MCH 29.1 MCHC 31.8 L RDW 13.0 Plt Count 229 MPV 9.1 Sodium 140 Potassium 4.1 Chloride 104 Carbon Dioxide 33 H Anion Gap 3 L BUN 12.8 Creatinine 0.9 Est GFR (CKD-EPI)AfAm 109.50 Est GFR (CKD-EPI)NonAf 94.48 Random Glucose 68 L Calcium 8.6 Total Bilirubin 0.3 AST 21 ALT 22 Alkaline Phosphatase 63 Total Protein 5.7 L Albumin 3.2 L RPR Titer Nonreactive aaox3 ambulating no acute distress - Treatment Hospital Course: Detox Protocol Followed, Detoxed Safely, Responded well, Discharged Condition Good, Rehab Referral Accepted Patient has Accepted a Rehab Referral to: pt declined rehab; referral provided - Medication Discharge Medications: Ambulatory Orders NK [No Known Home Medication] 12/14/13 - Diagnosis (1) Cocaine dependence, uncomplicated Current Visit: Yes Status: Chronic (2) Nicotine dependence Current Visit: Yes Status: Chronic Qualifiers: Nicotine product type: cigarettes Substance use status: uncomplicated Qualified Code(s): F17.210 - Nicotine dependence, cigarettes, uncomplicated (3) Opioid dependence with withdrawal Current Visit: Yes Status: Chronic - AMA Did Patient Leave Against Medical Advice: No
[2019-03-08 09:10] VITALS: BP 142/88; PULSE 76; TEMP 97.9
== END 2019-03-08 09:49 | disposition home or self-care (01) | DRG 773 ==
LOC: YASAS 01:27 → Y6N 02:04
PROVIDERS: ADMIT Allergy & Immunology; ATTEND Allergy & Immunology
PROC: HZ2ZZZZ Detoxification Services for Substance Abuse Treatment (ICD-10-PCS; principal; 2019-03-05)
DX: F11.23 Opioid dependence with withdrawal (principal); F14.20 Cocaine dependence, uncomplicated; F17.210 Nicotine dependence, cigarettes, uncomplicated; Z59.0 Homelessness
CPT/HCPCS: 36415; 80053; 85027; 86593; 93005; 93010

== ENCOUNTER 2019-09-10 10:50 | Inpatient (IN) | payer OTHER ==
--- NOTE | 2019-09-10 11:12 | BHS.RME ---
Substance Use & Tx History - Substance Use History Heroin Substance amount: 5-6 bags Frequency of use: Daily Substance route: Inhalation (ex: sniffing or snorting) Date of Last Use: 09/09/19 (First use age 24y. No ODs. No Narcan at home) - Last Treatment Date of last treatment: 03/05- 03/08/2019 Treatment type: Substance Use Disorder (ELSA) Where was last treatment: Detox Physical/Psych/Mental Status - Behavior General Behavior: Increased activity (restlessness, agitation) Eye Contact: Normal - Cooperativeness Cooperativeness: Cooperative - Thinking Thought Processes: Tight Thought content: Future oriented - Physical Health Problems Is patient presently having any pain?: No Does patient presently have any injuries (include location): No Does patient currently have a fever: No COWS - Scale Resting Pulse: 1= [place] 81-100 Sweatin=Flushed/Facial Moisture Restless Observation: 1= Difficult to Sit Still Pupil Size: 0= Normal to Room Light Bone or Joint Aches: 1= Mild Discomfort Runny Nose/ Eye Tearin= Runny Nose/Eyes GI Upset > 30mins: 2= Nausea/Diarrhea Tremor Observation: 0= None Yawning Observation: 0= None Anxiety or Irritability: 2=Irritable/Anxious Goose Flesh Skin: 0=Smooth Skin COWS Score: 11
[2019-09-10 11:53] VITALS: BMI 21.9
--- NOTE | 2019-09-10 12:11 | HP ---
COWS - Scale Resting Pulse: 1= [place] 81-100 Sweatin=Flushed/Facial Moisture Restless Observation: 1= Difficult to Sit Still Pupil Size: 0= Normal to Room Light Bone or Joint Aches: 1= Mild Discomfort Runny Nose/ Eye Tearin= Runny Nose/Eyes GI Upset > 30mins: 2= Nausea/Diarrhea Tremor Observation: 0= None Yawning Observation: 0= None Anxiety or Irritability: 2=Irritable/Anxious Goose Flesh Skin: 0=Smooth Skin COWS Score: 11 CIWA Score - Admission Criteria OASAS Guidelines: Admission for Medically Managed Detox: Requires at least one of the followin. CIWA greater than 12 2. Seizures within the past 24 hours 3. Delirium tremens within the past 24 hours 4. Hallucinations within the past 24 hours 5. Acute intervention needed for co occurring medical disorder 6. Acute intervention needed for co occurring psychiatric disorder 7. Severe withdrawal that cannot be handled at a lower level of care (continued vomiting, continued diarrhea, abnormal vital signs) requiring intravenous medication and/or fluids 8. Admitting History and Physical - Admission Chief Complaint: " I want to stop drugging." History of Present Illness: 58 year old male with history of dependence with withdrawal. He was last here in 03/05-03/08/2019 completed detox and then relapsed 1-2 months later. Heroin: 5-6 bags daily, [place], started at age 24, last used 09/09/19. Denies overdose and does not carry narcan Nicotine: 1/2 pack per day, started smoking at age 17 PMH: None Psurg: L Ing Hernia repair Psych: None Living in skilled nursing system and is homeless. He has no legal issues pending. He meets criteria for detox as he has a poor environment for recovery. COWS=11 History Source: Patient Limitations to Obtaining History: No Limitations - Past Surgical History Past Surgical History: Yes: Hernia Repair - Smoking History Smoking history: Current every day smoker Have you smoked in the past 12 months: Yes Aproximately how many cigarettes per day: 10 - Alcohol/Substance Use Hx Alcohol Use: No - Social History Usual Living Arrangement: Yes: Other Do you think of yourself as: Straight/Heterosexual ADL: Independent Occupation: unemployed History of Recent Travel: No Admission ROS S - HPI Allergies/Adverse Reactions: Allergies Allergy/AdvReac Type Severity Reaction Status Date / Time No Known Allergies Allergy Verified 09/10/19 11:42 Exam Limitations: No Limitations - Ebola screening Have you traveled outside of the country in the last 21 days: No Have you had contact with anyone from an Ebola affected area: No Have you been sick,other than usual withdrawal symptoms: No Do you have a fever: No - Review of Systems Constitutional: No Symptoms Reported EENT: reports: No Symptoms Reported Respiratory: reports: No Symptoms reported Cardiac: reports: No Symptoms Reported GI: reports: No Symptoms Reported : reports: No Symptoms Reported Musculoskeletal: reports: No Symptoms Reported Integumentary: reports: No Symptoms Reported Neuro: reports: No Symptoms reported Endocrine: reports: No Symptoms Reported Hematology: reports: No Symptoms Reported Psychiatric: reports: Judgement Intact, Mood/Affect Appropiate, Orientated x3, Anxious Other Systems: Reviewed and Negative Patient History - Patient Medical History Hx Anemia: No Hx Asthma: No Hx Chronic Obstructive Pulmonary Disease (COPD): No Hx Cancer: No Hx Cardiac Disorders: No Hx Congestive Heart Failure: No Hx Hypertension: No Hx Hypercholesterolemia: No Hx Pacemaker: No HX Cerebrovascular Accident: No Hx Seizures: No Hx Dementia: No Hx Diabetes: No Hx Gastrointestinal Disorders: No Hx Liver Disease: No Hx Genitourinary Disorders: No Hx Sexually Transmitted Disorders: No Hx Renal Disease (ESRD): No Hx Thyroid Disease: No Hx Human Immunodeficiency Virus (HIV): No (last tested one year ago, declines furtehr testing at this time ) Hx Hepatitis C: No Hx Depression: No Hx Suicide Attempt: No Hx Bipolar Disorder: No Hx Schizophrenia: No - Patient Surgical History Past Surgical History: Yes Hx Neurologic Surgery: No Hx Cataract Extraction: No Hx Cardiac Surgery: No Hx Lung Surgery: No Hx Breast Surgery: No Hx Breast Biopsy: No Hx Abdominal Surgery: No Hx Appendectomy: No Hx Cholecystectomy: No Hx Genitourinary Surgery: No Hx Section: No Hx Orthopedic Surgery: No Other Surgical History: left inguinal hernia repair in 1978 Anesthesia Reaction: No - PPD History Previous Implant?: Yes Documented Results: Negative w/proof Implanted On Prior [facility] Admission?: Yes Date: 03/07/19 Results: NEGATIVE PPD to be Administered?: No - Smoking Cessation Smoking history: Current every day smoker Have you smoked in the past 12 months: Yes Aproximately how many cigarettes per day: 10 Cigars Per Day: 0 Hx Chewing Tobacco Use: No Initiated information on smoking cessation: Yes 'Breaking Loose' booklet given: 09/10/19 - Substances abused Heroin Substance route: Inhalation Frequency: Daily Amount used: 5-6 BAGS Age of first use: 24 Date of last use: 09/09/19 Admission Physical Exam [facility] - Vital Signs Vital Signs: Vital Signs - 24 hr 09/10/19 09/10/19 11:47 12:05 Temperature 97.2 F L Pulse Rate 81 Respiratory 18 Rate Blood Pressure 165/112 H 141/91 - Physical General Appearance: Yes: Mild Distress, Tremorous, Irritable, Sweating, Anxious HEENTM: Yes: EOMI, Hearing grossly Normal, Normal ENT Inspection, Normocephalic, Normal Voice, ASHLIE, Pharynx Normal, Tm's normal Respiratory: Yes: Chest Non-Tender, Lungs Clear, Normal Breath Sounds, No Respiratory Distress, No Accessory Muscle Use Neck: Yes: No masses,lesions,Nodules, Supple, Trachea in good position Breast: Yes: Within Normal Limits Cardiology: Yes: Regular Rhythm, Regular Rate, S1, S2 Abdominal: Yes: Normal Bowel Sounds, Non Tender, Flat, Soft, Surgical Scar Genitourinary: Yes: Within Normal Limits Back: Yes: Normal Inspection Musculoskeletal: Yes: full range of Motion, Gait Steady, Pelvis Stable Extremities: Yes: Normal Capillary Refill, Normal Inspection, Normal Range of Motion, Non-Tender Neurological: Yes: decorator mannequin II-XII NML intact, Fully Oriented, Alert, Motor Strength 5/5, Normal Mood/Affect, Normal Response Integumentary: Yes: Normal Color, Warm Lymphatic: Yes: Within Normal Limits - Diagnostic (1) Nicotine dependence Current Visit: Yes Status: Chronic Qualifiers: Nicotine product type: cigarettes Substance use status: uncomplicated Qualified Code(s): F17.210 - Nicotine dependence, cigarettes, uncomplicated (2) Opioid dependence with withdrawal Current Visit: Yes Status: Chronic Cleared for Admission [facility] - Detox or Rehab [facility] Level of Care: Medically Managed Detox Regimen/Protocol: Methadone Claeared for Rehab Admission: No Screened but not Admitted - Documentation of Visit Screened but not Admitted: No Breathalyzer - Breathalyzer Breathalyzer: 0 Urine Drug Screen - Test Device Lot number: [id number] Expiration date: 11/11/20 - Control Is test valid?: Yes - Results Drug screen NEGATIVE: No Urine drug screen results: FEN-Fentanyl, MOP-Opiates Inpatient Rehab Admission - Rehab Decision to Admit Inpatient rehab admission?: No
[2019-09-10] MEDS ORDERED: ACETAMINOPHEN 325 MG TABLET (FP) PO PRN ×2 (12:18)
[2019-09-10] MEDS ORDERED: IBUPROFEN 400 MG TABLET (FP) PO PRN (12:18)
[2019-09-10] MEDS ORDERED: BISMUTH SUBSALICYLATE 262 MG/15 ML BTL PO PRN (12:18)
[2019-09-10] MEDS ORDERED: MAGNESIUM HYDROX 2400MG/30ML ORAL SUSPENSION 30 ML CUP PO PRN (12:18)
[2019-09-10] MEDS ORDERED: MAGNESIUM CITRATE 300 ML BOTTLE PO PRN (12:18)
[2019-09-10] MEDS ORDERED: MAG HYDROX/AL HYDROX/SIMETH 30 ML UNIT-DOSE CUP PO PRN (12:18)
[2019-09-10] MEDS ORDERED: MENTHOL/PHENOL 1 EACH UD MM PRN (12:18)
[2019-09-10] MEDS ORDERED: METHADONE HCL 10 MG TABLET (FOR DETOX USE ONLY) PO ONE (12:18)
[2019-09-10] MEDS ORDERED: NICOTINE POLACRILEX 2 MG GUM BUC PRN (12:18)
[2019-09-10] MEDS ORDERED: METHOCARBAMOL 500 MG TABLET PO PRN (12:18)
[2019-09-10] MEDS ORDERED: ONDANSETRON *ODT* 4 MG TABLET SL ONE (12:18)
[2019-09-10] MEDS ORDERED: hydrOXYzine PAMOATE 25 MG CAPSULE (FP) PO PRN (12:51)
[2019-09-10] MEDS: cloNIDine HCL 0.1 MG TABLET PO PRN (13:21)
[2019-09-10] MEDS: PRENATAL VITAMINS W/ FOLIC ACID TABLET (FP) PO SCH (13:23)
[2019-09-10] MEDS: NICOTINE 7 MG/24 HOURS TOPICAL PATCH TD SCH (13:24)
[2019-09-10] MEDS ORDERED: diazePAM 5 MG TABLET PO PRN (13:26)
--- NOTE | 2019-09-10 13:30 | PN ---
[facility] Progress Note Note: withdrawal symptom Vital Signs Temperature 97.7 F 09/10/19 12:48 Pulse Rate 69 09/10/19 12:48 Respiratory Rate 16 09/10/19 12:48 Blood Pressure 171/108 H 09/10/19 12:48 O2 Sat by Pulse Oximetry (%) continue methadone regimen,clonidine 0.1 mg po now and valium 10 mgs po q 4 hrs prn for 72 hours close monitoring
[2019-09-10] MEDS ORDERED: hydrOXYzine PAMOATE 25 MG CAPSULE (FP) PO SCH (14:00)
[2019-09-10 17:19] LABS: HEMATOCRIT 39.8 % (35.4-49); HEMOGLOBIN 12.8 GM/dL (11.7-16.9); MCHC 32.2 g/dl (32.0-35.9); MEAN CELL VOLUME 90.1 fl (80-96); MEAN PLT VOLUME 8.9 fl (7.5-11.1); PLATELET COUNT 265 K/MM3 (134-434); RBC 4.42 M/mm3 (4.00-5.60); WHITE BLOOD COUNT 5.3 K/mm3 (4.0-10.0)
[2019-09-10 17:29] LABS: ALBUMIN 3.7 g/dl (3.4-5.0); BILIRUBIN,TOTAL 0.6 mg/dL (0.2-1); BLOOD UREA NITROGEN 16.8 mg/dL (7-18); CALCIUM 9.2 mg/dL (8.5-10.1); CREATININE 0.9 mg/dL (0.55-1.3); POTASSIUM 4.8 mmol/L (3.5-5.1); TOT PROT 6.8 g/dl (6.4-8.2)
[2019-09-10] MEDS: THIAMINE HCL 100 MG TABLET (FP) PO SCH (23:03)
[2019-09-10] MEDS: MELATONIN 5 MG TABLETS PO SCH (23:03)
--- NOTE | 2019-09-11 09:02 | PN ---
S COWS - Scale Resting Pulse: 0= [place] 80 or Below Sweatin= No chills or Flushing Restless Observation: 1= Difficult to Sit Still Pupil Size: 1= Pupils >than Normal Bone or Joint Aches: 2= Severe Diffuse Aches Runny Nose/ Eye Tearin= Nasal Congestion GI Upset > 30mins: 2= Nausea/Diarrhea Tremor Observation of Outstretched Hands: 2= Slight Tremor Visible Yawning Observation: 1= 1-2x During Session Anxiety or Irritability: 2=Irritable/Anxious Goose Flesh Skin: 0=Smooth Skin COWS Score: 12 S Progress Note (SOAP) Subjective: alert,irritable,anxious,interrupted sleep,pain in the body and back,nausea,poor appetite Objective: 09/11/19 08:58 09/10/19 09/10/19 12:15 12:15 WBC 5.3 RBC 4.42 Hgb 12.8 Hct 39.8 MCV 90.1 MCHC 32.2 RDW 13.0 Plt Count 265 Sodium 138 Potassium 4.8 Chloride 101 Carbon Dioxide 34 H Anion Gap 2 L BUN 16.8 Creatinine 0.9 09/11/19 08:59 Vital Signs Temperature 97.7 F 09/11/19 05:36 Pulse Rate 72 09/11/19 05:36 Respiratory Rate 18 09/11/19 05:36 Blood Pressure 133/76 09/11/19 05:36 O2 Sat by Pulse Oximetry (%) 96 09/11/19 05:36 09/11/19 09:00 chest xray copd,no acute change reported done on 08/10/2019 Assessment: 09/11/19 08:59 withdrawal symptom Plan: continue detox methadone regimen,valium 10 mgs po q 4 hrs prn for withdrawal
[2019-09-11] MEDS ORDERED: METHADONE HCL 5 MG TABLET (FOR DETOX USE ONLY) ONE (09:17)
[2019-09-11] MEDS ORDERED: METHADONE HCL 10 MG TABLET (FOR DETOX USE ONLY) ONE (09:17)
[2019-09-11] MEDS ORDERED: METHADONE (DETOX) 20 MG, METHADONE (DETOX) 5 MG PO ONE (10:00)
[2019-09-11] MEDS: PRENATAL VITAMINS W/ FOLIC ACID TABLET (FP) PO SCH (10:31)
[2019-09-11] MEDS: NICOTINE 7 MG/24 HOURS TOPICAL PATCH TD SCH (10:31)
[2019-09-11] MEDS: cloNIDine HCL 0.1 MG TABLET PO PRN ×2 (10:31→22:17)
[2019-09-11] MEDS: THIAMINE HCL 100 MG TABLET (FP) PO SCH (22:17)
[2019-09-11] MEDS: MELATONIN 5 MG TABLETS PO SCH (22:18)
[2019-09-12] MEDS ORDERED: METHADONE HCL 10 MG TABLET (FOR DETOX USE ONLY) PO ONE (10:00)
[2019-09-12] MEDS: PRENATAL VITAMINS W/ FOLIC ACID TABLET (FP) PO SCH (10:53)
[2019-09-12] MEDS: NICOTINE 7 MG/24 HOURS TOPICAL PATCH TD SCH (10:53)
--- NOTE | 2019-09-12 11:05 | PN ---
BHS COWS - Scale Resting Pulse: 1= [place] 81-100 Sweatin= No chills or Flushing Restless Observation: 0= Sits Still Pupil Size: 1= Pupils >than Normal Bone or Joint Aches: 1= Mild Discomfort Runny Nose/ Eye Tearin= Nasal Congestion GI Upset > 30mins: 1= Stomach Cramp Tremor Observation of Outstretched Hands: 2= Slight Tremor Visible Yawning Observation: 1= 1-2x During Session Anxiety or Irritability: 2=Irritable/Anxious Goose Flesh Skin: 0=Smooth Skin COWS Score: 10 BHS Progress Note (SOAP) Subjective: alert,irritable,anxious,interrupted sleep,tremor,pain in the body and back,nausea Objective: 09/12/19 11:04 Vital Signs Temperature 98.3 F 09/12/19 08:32 Pulse Rate 87 09/12/19 08:32 Respiratory Rate 18 09/12/19 08:32 Blood Pressure 136/87 09/12/19 08:32 O2 Sat by Pulse Oximetry (%) 96 09/12/19 05:38 09/12/19 11:04 Laboratory Last Values WBC 5.3 K/mm3 (4.0-10.0) 09/10/19 12:15 RBC 4.42 M/mm3 (4.00-5.60) 09/10/19 12:15 Hgb 12.8 GM/dL (11.7-16.9) 09/10/19 12:15 Hct 39.8 % (35.4-49) 09/10/19 12:15 MCV 90.1 fl (80-96) 09/10/19 12:15 MCH 29.0 pg (25.7-33.7) 09/10/19 12:15 MCHC 32.2 g/dl (32.0-35.9) 09/10/19 12:15 RDW 13.0 % (11.9-15.9) 09/10/19 12:15 Plt Count 265 K/MM3 (134-434) 09/10/19 12:15 MPV 8.9 fl (7.5-11.1) 09/10/19 12:15 Sodium 138 mmol/L (136-145) 09/10/19 12:15 Potassium 4.8 mmol/L (3.5-5.1) 09/10/19 12:15 Chloride 101 mmol/L (98-107) 09/10/19 12:15 Carbon Dioxide 34 mmol/L (21-32) H 09/10/19 12:15 Anion Gap 2 MMOL/L (8-16) L 09/10/19 12:15 BUN 16.8 mg/dL (7-18) 09/10/19 12:15 Creatinine 0.9 mg/dL (0.55-1.3) 09/10/19 12:15 Est GFR (CKD-EPI)AfAm 109.50 09/10/19 12:15 Est GFR (CKD-EPI)NonAf 94.48 09/10/19 12:15 Random Glucose 81 mg/dL (74-106) 09/10/19 12:15 Calcium 9.2 mg/dL (8.5-10.1) 09/10/19 12:15 Total Bilirubin 0.6 mg/dL (0.2-1) 09/10/19 12:15 AST 37 U/L (15-37) 09/10/19 12:15 ALT 26 U/L (13-61) 09/10/19 12:15 Alkaline Phosphatase 74 U/L (45-117) 09/10/19 12:15 Total Protein 6.8 g/dl (6.4-8.2) 09/10/19 12:15 Albumin 3.7 g/dl (3.4-5.0) 09/10/19 12:15 Syphilis Serology Non-reactive (NONREACTIVE) 09/10/19 12:15 COVID-19 (ELLE) Not detected (Not Detected) 09/10/19 12:15 Assessment: 09/12/19 11:04 withdrawal symptom Plan: continue detox methadone regimen
[2019-09-12] MEDS: THIAMINE HCL 100 MG TABLET (FP) PO SCH (22:14)
[2019-09-12] MEDS: MELATONIN 5 MG TABLETS PO SCH (22:14)
[2019-09-12] MEDS: cloNIDine HCL 0.1 MG TABLET PO PRN (22:15)
[2019-09-13] MEDS ORDERED: METHADONE HCL 10 MG TABLET (FOR DETOX USE ONLY) ONE (08:41)
[2019-09-13] MEDS ORDERED: METHADONE HCL 5 MG TABLET (FOR DETOX USE ONLY) ONE (08:41)
--- NOTE | 2019-09-13 09:53 | PN ---
[facility] CIWA - CIWA Score Nausea/Vomitin-No Nausea/No Vomiting Muscle Tremors: None Anxiety: 1-Mildly Anxious Agitation: 0-Normal Activity Paroxysmal Sweats: No Perspiration Orientation: 0-Oriented Tacttile Disturbances: 0-None Auditory Disturbances: 0-None Visual Disturbances: 0-None Headache: 0-None Present CIWA-Ar Total Score: 1 [facility] COWS - Scale Resting Pulse: 0= HI 80 or Below Sweatin= No chills or Flushing Restless Observation: 0= Sits Still Pupil Size: 0= Normal to Room Light Bone or Joint Aches: 0= None Runny Nose/ Eye Tearin= None GI Upset > 30mins: 0= None Tremor Observation of Outstretched Hands: 0= None Yawning Observation: 0= None Anxiety or Irritability: 1=Feels Anxious/Irritable Goose Flesh Skin: 0=Smooth Skin COWS Score: 1 [facility] Progress Note (SOAP) Subjective: alert,no complaint Objective: 09/13/19 09:52 Vital Signs Temperature 97.5 F L 09/13/19 08:42 Pulse Rate 77 09/13/19 08:42 Respiratory Rate 18 09/13/19 08:42 Blood Pressure 153/87 09/13/19 08:42 O2 Sat by Pulse Oximetry (%) 96 09/13/19 05:44 Assessment: 09/13/19 09:52 detox completed,no withdrawal symptom Plan: stable for discharge today,follow up with after care program as arrangement
--- NOTE | 2019-09-13 09:54 | DS ---
[facility] Detox Discharge Summary Admission Date: 09/10/19 Discharge Date: 09/13/19 - History Present History: Cocaine Dependence, Opioid Dependence Additional Comments: alert oriented x 3 ambulation on the unit lung clear on auscultation bilaterally abdomen soft,no pain,no distension stable for discharge,no withdrawal symptom follow up with after care program as arrangement [facility] total time spending on discharge 35 minutes Pertinent Past History: nicotine dependence - Physical Exam Results Vital Signs: Vital Signs Temperature 97.5 F L 09/13/19 08:42 Pulse Rate 77 09/13/19 08:42 Respiratory Rate 18 09/13/19 08:42 Blood Pressure 153/87 09/13/19 08:42 O2 Sat by Pulse Oximetry (%) 96 09/13/19 05:44 Pertinent Admission Physical Exam Findings: withdrawal signs and symptom Laboratory Last Values WBC 5.3 K/mm3 (4.0-10.0) 09/10/19 12:15 RBC 4.42 M/mm3 (4.00-5.60) 09/10/19 12:15 Hgb 12.8 GM/dL (11.7-16.9) 09/10/19 12:15 Hct 39.8 % (35.4-49) 09/10/19 12:15 MCV 90.1 fl (80-96) 09/10/19 12:15 MCH 29.0 pg (25.7-33.7) 09/10/19 12:15 MCHC 32.2 g/dl (32.0-35.9) 09/10/19 12:15 RDW 13.0 % (11.9-15.9) 09/10/19 12:15 Plt Count 265 K/MM3 (134-434) 09/10/19 12:15 MPV 8.9 fl (7.5-11.1) 09/10/19 12:15 Sodium 138 mmol/L (136-145) 09/10/19 12:15 Potassium 4.8 mmol/L (3.5-5.1) 09/10/19 12:15 Chloride 101 mmol/L (98-107) 09/10/19 12:15 Carbon Dioxide 34 mmol/L (21-32) H 09/10/19 12:15 Anion Gap 2 MMOL/L (8-16) L 09/10/19 12:15 BUN 16.8 mg/dL (7-18) 09/10/19 12:15 Creatinine 0.9 mg/dL (0.55-1.3) 09/10/19 12:15 Est GFR (CKD-EPI)AfAm 109.50 09/10/19 12:15 Est GFR (CKD-EPI)NonAf 94.48 09/10/19 12:15 Random Glucose 81 mg/dL (74-106) 09/10/19 12:15 Calcium 9.2 mg/dL (8.5-10.1) 09/10/19 12:15 Total Bilirubin 0.6 mg/dL (0.2-1) 09/10/19 12:15 AST 37 U/L (15-37) 09/10/19 12:15 ALT 26 U/L (13-61) 09/10/19 12:15 Alkaline Phosphatase 74 U/L (45-117) 09/10/19 12:15 Total Protein 6.8 g/dl (6.4-8.2) 09/10/19 12:15 Albumin 3.7 g/dl (3.4-5.0) 09/10/19 12:15 Syphilis Serology Non-reactive (NONREACTIVE) 09/10/19 12:15 COVID-19 ([facility]) Not detected (Not Detected) 09/10/19 12:15 Vital Signs Temperature 97.5 F L 09/13/19 08:42 Pulse Rate 77 09/13/19 08:42 Respiratory Rate 18 09/13/19 08:42 Blood Pressure 153/87 09/13/19 08:42 O2 Sat by Pulse Oximetry (%) 96 09/13/19 05:44 - Treatment Hospital Course: Detox Protocol Followed, Detoxed Safely, Responded well, Discharged Condition Good, Rehab Referral Accepted Patient has Accepted a Rehab Referral to: [facility] - Medication Discharge Medications: Ambulatory Orders NK [No Known Home Medication] 12/14/13 - Diagnosis (1) Opioid dependence with withdrawal Current Visit: Yes Status: Chronic (2) Nicotine dependence Current Visit: Yes Status: Chronic Qualifiers: Nicotine product type: cigarettes Substance use status: uncomplicated Qualified Code(s): F17.210 - Nicotine dependence, cigarettes, uncomplicated (3) Cocaine dependence, uncomplicated Current Visit: No Status: Chronic - AMA Did Patient Leave Against Medical Advice: No
[2019-09-13] MEDS ORDERED: METHADONE (DETOX) 10 MG, METHADONE (DETOX) 5 MG PO ONE (10:00)
--- NOTE | 2019-09-13 10:02 | PN ---
S Progress Note Note: please disregard note on 9.50am and discharge summary on 53,belong to other patient
--- NOTE | 2019-09-13 10:04 | PN ---
[facility] COWS - Scale Resting Pulse: 0= [place] 80 or Below Sweatin= No chills or Flushing Restless Observation: 0= Sits Still Pupil Size: 1= Pupils >than Normal Bone or Joint Aches: 1= Mild Discomfort Runny Nose/ Eye Tearin= Nasal Congestion GI Upset > 30mins: 2= Nausea/Diarrhea Tremor Observation of Outstretched Hands: 2= Slight Tremor Visible Yawning Observation: 1= 1-2x During Session Anxiety or Irritability: 2=Irritable/Anxious Goose Flesh Skin: 0=Smooth Skin COWS Score: 10 [facility] Progress Note (SOAP) Subjective: alert,irritable,anxious,interrupted sleep,tremor,pain in the body and back Objective: 09/13/19 10:03 Vital Signs Temperature 97.5 F L 09/13/19 08:42 Pulse Rate 77 09/13/19 08:42 Respiratory Rate 18 09/13/19 08:42 Blood Pressure 153/87 09/13/19 08:42 O2 Sat by Pulse Oximetry (%) 96 09/13/19 05:44 Assessment: 09/13/19 10:03 withdrawal symptom Plan: continue detox methadone regimen
[2019-09-13] MEDS: PRENATAL VITAMINS W/ FOLIC ACID TABLET (FP) PO SCH (10:13)
[2019-09-13] MEDS: NICOTINE 7 MG/24 HOURS TOPICAL PATCH TD SCH (10:13)
[2019-09-13] MEDS: THIAMINE HCL 100 MG TABLET (FP) PO SCH (22:17)
[2019-09-13] MEDS: MELATONIN 5 MG TABLETS PO SCH (22:39)
[2019-09-14] MEDS ORDERED: METHADONE HCL 10 MG TABLET (FOR DETOX USE ONLY) PO ONE (10:00)
[2019-09-14] MEDS: NICOTINE 7 MG/24 HOURS TOPICAL PATCH TD SCH (10:05)
[2019-09-14] MEDS: PRENATAL VITAMINS W/ FOLIC ACID TABLET (FP) PO SCH (10:05)
--- NOTE | 2019-09-14 10:34 | PN ---
[facility] COWS - Scale Resting Pulse: 0= [place] 80 or Below Sweatin= No chills or Flushing Restless Observation: 0= Sits Still Pupil Size: 0= Normal to Room Light Bone or Joint Aches: 1= Mild Discomfort Runny Nose/ Eye Tearin= Nasal Congestion GI Upset > 30mins: 1= Stomach Cramp Tremor Observation of Outstretched Hands: 1= Tremor [place], Not Seen Yawning Observation: 0= None Anxiety or Irritability: 2=Irritable/Anxious Goose Flesh Skin: 0=Smooth Skin COWS Score: 6 [facility] Progress Note (SOAP) Subjective: alert,irritable,anxious,interrupted sleep,pain in the body Objective: 09/14/19 10:32 Vital Signs Temperature 97.3 F L 09/14/19 08:37 Pulse Rate 76 09/14/19 08:37 Respiratory Rate 16 09/14/19 08:37 Blood Pressure 151/91 09/14/19 08:37 O2 Sat by Pulse Oximetry (%) 97 09/14/19 06:12 Assessment: 09/14/19 10:32 withdrawal symptom Plan: continue detox methadone regimen,discharge in am
[2019-09-14] MEDS: THIAMINE HCL 100 MG TABLET (FP) PO SCH (21:58)
[2019-09-14] MEDS: MELATONIN 5 MG TABLETS PO SCH (21:59)
[2019-09-15] MEDS ORDERED: METHADONE HCL 5 MG TABLET (FOR DETOX USE ONLY) PO ONE (06:00)
[2019-09-15 09:10] VITALS: BP 140/87; PULSE 69; TEMP 97.5
[2019-09-15] MEDS: PRENATAL VITAMINS W/ FOLIC ACID TABLET (FP) PO SCH (10:05)
[2019-09-15] MEDS: NICOTINE 7 MG/24 HOURS TOPICAL PATCH TD SCH (10:05)
--- NOTE | 2019-09-15 13:02 | DS ---
[facility] Detox Discharge Summary Admission Date: 09/10/19 Discharge Date: 09/15/19 - History Present History: Opioid Dependence Additional Comments: Patient going to [facility] ([facility]) for aftercare. Patient A & O X 3, observed ambulating on Detox Unit unassisted prior to time of discharge. Patient denied current withdrawal / detox symptoms when assessed prior to time of Discharge from Detox Unit. Patient was discharged from Detox Unit to be taken over to Rehab Unit in stable medical condition. Pertinent Past History: Nicotine Dependence. - Physical Exam Results Vital Signs: Vital Signs Temperature 97.5 F L 09/15/19 08:42 Pulse Rate 69 09/15/19 08:42 Respiratory Rate 18 09/15/19 08:42 Blood Pressure 140/87 09/15/19 08:42 O2 Sat by Pulse Oximetry (%) 96 09/15/19 05:12 Pertinent Admission Physical Exam Findings: WITHDRAWAL SYMPTOMS. Laboratory Tests 09/10/19 09/10/19 09/10/19 12:15 12:15 12:15 WBC 5.3 RBC 4.42 Hgb 12.8 Hct 39.8 MCV 90.1 MCH 29.0 MCHC 32.2 RDW 13.0 Plt Count 265 MPV 8.9 Sodium 138 Potassium 4.8 Chloride 101 Carbon Dioxide 34 H Anion Gap 2 L BUN 16.8 Creatinine 0.9 Est GFR (CKD-EPI)AfAm 109.50 Est GFR (CKD-EPI)NonAf 94.48 Random Glucose 81 Calcium 9.2 Total Bilirubin 0.6 AST 37 ALT 26 Alkaline Phosphatase 74 Total Protein 6.8 Albumin 3.7 Syphilis Serology Non-reactive COVID-19 ([facility]) 09/10/19 12:15 WBC RBC Hgb Hct MCV MCH MCHC RDW Plt Count MPV Sodium Potassium Chloride Carbon Dioxide Anion Gap BUN Creatinine Est GFR (CKD-EPI)AfAm Est GFR (CKD-EPI)NonAf Random Glucose Calcium Total Bilirubin AST ALT Alkaline Phosphatase Total Protein Albumin Syphilis Serology COVID-19 ([facility]) Not detected Lab Results noted. - Treatment Hospital Course: Detox Protocol Followed, Detoxed Safely, Responded well, Discharged Condition Good, Rehab Referral Accepted Patient has Accepted a Rehab Referral to: [facility] ([place]). - Medication Discharge Medications: Ambulatory Orders NK [No Known Home Medication] 12/14/13 - Diagnosis (1) Nicotine dependence Status: Chronic Qualifiers: Nicotine product type: cigarettes Substance use status: uncomplicated Qualified Code(s): F17.210 - Nicotine dependence, cigarettes, uncomplicated (2) Opioid dependence with withdrawal Status: Acute - AMA Did Patient Leave Against Medical Advice: No
== END 2019-09-15 11:10 | disposition other institution (70) | DRG 773 ==
LOC: YASAS 10:50 → Y6N 11:58
PROVIDERS: ADMIT Allergy & Immunology; ATTEND Allergy & Immunology
PROC: HZ2ZZZZ Detoxification Services for Substance Abuse Treatment (ICD-10-PCS; principal; 2019-09-10)
DX: F11.23 Opioid dependence with withdrawal (principal); F14.20 Cocaine dependence, uncomplicated; F17.210 Nicotine dependence, cigarettes, uncomplicated; J44.9 Chronic obstructive pulmonary disease, unspecified; Z59.0 Homelessness
CPT/HCPCS: 36415; 71046-TC-FY; 80053; 85027; 86780; J0735; U0003

== ENCOUNTER 2019-09-15 10:58 | Inpatient (IN) | payer OTHER ==
[2019-09-15] MEDS ORDERED: MENTHOL/PHENOL 1 EACH UD MM PRN (13:03)
[2019-09-15] MEDS ORDERED: guaiFENesin 200 MG/10 ML 10 ML UNIT-DOSE CUPS PO PRN (13:03)
[2019-09-15] MEDS ORDERED: LOPERAMIDE HCL 2 MG CAPSULE PO PRN (13:03)
[2019-09-15] MEDS ORDERED: MAGNESIUM HYDROX 2400MG/30ML ORAL SUSPENSION 30 ML CUP PO PRN (13:03)
[2019-09-15] MEDS ORDERED: ACETAMINOPHEN 325 MG TABLET (FP) PO PRN (13:03)
[2019-09-15] MEDS ORDERED: MAGNESIUM CITRATE 300 ML BOTTLE PO PRN (13:03)
[2019-09-15] MEDS ORDERED: IBUPROFEN 400 MG TABLET (FP) PO PRN (13:03)
[2019-09-15] MEDS ORDERED: P-EPHED 60MG/TRIPROLIDI 2.5MG TABLET PO PRN (13:03)
[2019-09-15] MEDS ORDERED: NICOTINE POLACRILEX 2 MG GUM BUC PRN (13:03)
[2019-09-15] MEDS ORDERED: MAG HYDROX/AL HYDROX/SIMETH 30 ML UNIT-DOSE CUP PO PRN (13:03)
--- NOTE | 2019-09-15 13:08 | HP ---
[facility] Rehab Assess/Revision - Admission History Admitted to Rehab from: [facility] Date of Admission to Rehab: 09/15/2019 - Vital signs Vital Signs: Vital Signs Period Temp Pulse Resp BP Sys/Basurto Pulse Ox Last 24 Hr 98.4 F 70 18 123/79 - Findings Detox History & Physical reviewed: Yes Concur with findings: Yes Comments/Additional Findings: Patient's Medical / Medication History reviewed prior to Discharge from Detox Unit. Patient was Discharged from Detox unit to be taken over to Rehab unit in stable medical condition. Inpatient Rehab Admission - Rehab Decision to Admit Inpatient rehab admission?: Yes - Initial Determination Are CD services needed?: Yes Free of communicable disease: Yes Not in need of hospitalization: Yes - Rehab Admission Criteria Previous failed treatment: Yes Poor recovery environment: Yes Comorbidities: No Lacks judgement: No Patient is meeting Inpatient Rehab admission criteria:: Yes
[2019-09-15] MEDS: hydrOXYzine PAMOATE 25 MG CAPSULE (FP) PO SCH ×3 (14:21→21:25)
[2019-09-15] MEDS: MELATONIN 5 MG TABLETS PO SCH (21:24)
[2019-09-15] MEDS: THIAMINE HCL 100 MG TABLET (FP) PO SCH (21:25)
[2019-09-16] MEDS: hydrOXYzine PAMOATE 25 MG CAPSULE (FP) PO SCH ×5 (07:08→23:13)
[2019-09-16] MEDS: PRENATAL VITAMINS W/ FOLIC ACID TABLET (FP) PO SCH (10:30)
[2019-09-16] MEDS: NICOTINE 7 MG/24 HOURS TOPICAL PATCH TD SCH (10:30)
[2019-09-16] MEDS: THIAMINE HCL 100 MG TABLET (FP) PO SCH (23:13)
[2019-09-16] MEDS: MELATONIN 5 MG TABLETS PO SCH (23:13)
[2019-09-17] MEDS: hydrOXYzine PAMOATE 25 MG CAPSULE (FP) PO SCH ×2 (06:48→10:40)
[2019-09-17] MEDS: PRENATAL VITAMINS W/ FOLIC ACID TABLET (FP) PO SCH (10:40)
[2019-09-17] MEDS: NICOTINE 7 MG/24 HOURS TOPICAL PATCH TD SCH (10:40)
[2019-09-17] MEDS ORDERED: hydrOXYzine PAMOATE 25 MG CAPSULE (FP) PO PRN (11:38)
[2019-09-17] MEDS: THIAMINE HCL 100 MG TABLET (FP) PO SCH (21:10)
[2019-09-17] MEDS: MELATONIN 5 MG TABLETS PO SCH (21:10)
[2019-09-18] MEDS: NICOTINE 7 MG/24 HOURS TOPICAL PATCH TD SCH (09:59)
[2019-09-18] MEDS: PRENATAL VITAMINS W/ FOLIC ACID TABLET (FP) PO SCH (10:00)
[2019-09-18] MEDS: MELATONIN 5 MG TABLETS PO SCH (21:48)
[2019-09-18] MEDS: THIAMINE HCL 100 MG TABLET (FP) PO SCH (21:48)
[2019-09-19 07:06] VITALS: BP 144/94; PULSE 73; TEMP 98.1
[2019-09-19] MEDS: PRENATAL VITAMINS W/ FOLIC ACID TABLET (FP) PO SCH (09:46)
[2019-09-19] MEDS: NICOTINE 7 MG/24 HOURS TOPICAL PATCH TD SCH (09:46)
--- NOTE | 2019-09-19 14:57 | DS ---
[facility] Rehab Discharge Summary - [facility] Rehab Discharge Summary Admission Date: 09/15/19 Discharge Date: 09/19/19 - History Present History: Cocaine dependence, Opioid dependence Pertinent Past History: 58 year old male with history of opioid dependence with withdrawal. He was last here in 03/05-03/08/2019 and then relapsed 1-2 months later. Heroin: 5-6 bags daily, IN, started at age 24, last used 09/09/19. Denies overdose and does not carry narcan Nicotine: 1/2 pack per day, started smoking at age 17 PMH: None Psurg: L Ing Hernia repair Psych: None Living in skilled nursing system and is homeless. - Discharge Physical Exam Vital Signs: Vital Signs Temperature 98.1 F 09/19/19 06:30 Pulse Rate 73 09/19/19 06:30 Respiratory Rate 16 09/19/19 06:30 Blood Pressure 144/94 09/19/19 06:30 O2 Sat by Pulse Oximetry (%) 95 09/19/19 13:35 Pertinent Admission Physical Exam Findings: Physical General Appearance: No apparent distress HEENTM: Normocephalic, Respiratory: No Respiratory Distress, No Accessory Muscle Use Neck: Supple, Trachea in good position Cardiology:S1, S2 Abdominal: +Bowel Sounds, Musculoskeletal: full range of Motion, Gait Steady, Pelvis Stable Neurological: waste baler II-XII NML intact, - Treatment Discharge Condition: Outpatient referral accepted [facility] Hospital Course: Patient attended groups, had 1:1 with his counselor. He had no acute or urgent medical problems while in rehab. He was adherent to his medication regimen and treatment plan. - Medication Discharge Medications: Ambulatory Orders NK [No Known Home Medication] 12/14/13 - Medication-Assisted Treatment (MAT) Medication-Assisted Treatment (MAT): No - Discharge Instructions Diet, activity, other medical instructions: Diet: as tolerated Activity: as tolerated Other medical instructions: Please follow up with aftercare referral. - Diagnosis (1) Cocaine dependence, uncomplicated Current Visit: No Status: Chronic (2) Opioid dependence with withdrawal Current Visit: No Status: Chronic - Follow-up Referral Minutes to complete discharge: 15 - AMA Did Patient Leave Against Medical Advice: No
== END 2019-09-19 14:56 | disposition home or self-care (01) | DRG 772 ==
LOC: YASAS 10:58 → Y3E 10:59
PROVIDERS: ADMIT Allergy & Immunology; ATTEND Allergy & Immunology
PROC: HZ42ZZZ Group Counseling for Substance Abuse Treatment, Cognitive-Behavioral (ICD-10-PCS; principal; 2019-09-15)
DX: F11.20 Opioid dependence, uncomplicated (principal); F14.20 Cocaine dependence, uncomplicated; F17.210 Nicotine dependence, cigarettes, uncomplicated; Z98.890 Other specified postprocedural states; Z59.0 Homelessness

== ENCOUNTER 2019-10-28 13:01 | Inpatient (IN) | payer OTHER ==
[2019-10-28] MEDS ORDERED: MAG HYDROX/AL HYDROX/SIMETH 30 ML UNIT-DOSE CUP PO PRN (15:08)
[2019-10-28] MEDS ORDERED: IBUPROFEN 400 MG TABLET (FP) PO PRN (15:08)
[2019-10-28] MEDS ORDERED: MAGNESIUM CITRATE 300 ML BOTTLE PO PRN (15:08)
[2019-10-28] MEDS ORDERED: LOPERAMIDE HCL 2 MG CAPSULE PO PRN (15:08)
[2019-10-28] MEDS ORDERED: P-EPHED 60MG/TRIPROLIDI 2.5MG TABLET PO PRN (15:08)
[2019-10-28] MEDS ORDERED: ACETAMINOPHEN 325 MG TABLET (FP) PO PRN (15:08)
[2019-10-28] MEDS ORDERED: NICOTINE POLACRILEX 2 MG GUM BUC PRN (15:08)
[2019-10-28] MEDS ORDERED: MAGNESIUM HYDROX 2400MG/30ML ORAL SUSPENSION 30 ML CUP PO PRN (15:08)
[2019-10-28] MEDS ORDERED: MENTHOL/PHENOL 1 EACH UD MM PRN (15:08)
[2019-10-28] MEDS ORDERED: guaiFENesin 200 MG/10 ML 10 ML UNIT-DOSE CUPS PO PRN (15:08)
--- NOTE | 2019-10-28 15:13 | HP ---
[facility] Rehab Assess/Revision - Admission History Admitted to Rehab from: [facility] Date of Admission to Rehab: 10/28/19 - Vital signs Vital Signs: Vital Signs Period Temp Pulse Resp BP Sys/Basurto Pulse Ox Last 24 Hr 97.7 F 74 18 124/87 97 - Findings Detox History & Physical reviewed: Yes Concur with findings: Yes Inpatient Rehab Admission - Rehab Decision to Admit Inpatient rehab admission?: Yes - Initial Determination Are CD services needed?: No Free of communicable disease: Yes Not in need of hospitalization: No - Rehab Admission Criteria Previous failed treatment: Yes Poor recovery environment: Yes Comorbidities: Yes Lacks judgement: Yes Patient is meeting Inpatient Rehab admission criteria:: Yes
[2019-10-28] MEDS: hydrOXYzine PAMOATE 25 MG CAPSULE (FP) PO SCH ×2 (17:35→22:37)
[2019-10-28] MEDS ORDERED: PT OWN MED DRAWER 7, Y5N ONE (22:31)
[2019-10-28] MEDS: MELATONIN 5 MG TABLETS PO SCH (22:37)
[2019-10-28] MEDS: THIAMINE HCL 100 MG TABLET (FP) PO SCH (22:37)
[2019-10-29] MEDS: hydrOXYzine PAMOATE 25 MG CAPSULE (FP) PO SCH (06:31)
[2019-10-29] MEDS ORDERED: hydrOXYzine PAMOATE 25 MG CAPSULE (FP) PO PRN (08:50)
[2019-10-29] MEDS: PRENATAL VITAMINS W/ FOLIC ACID TABLET (FP) PO SCH (10:56)
[2019-10-29] MEDS: amLODIPine BESYLATE 5 MG TABLET (FP) PO SCH (10:57)
[2019-10-29] MEDS: MELATONIN 5 MG TABLETS PO SCH (22:13)
[2019-10-29] MEDS: THIAMINE HCL 100 MG TABLET (FP) PO SCH (22:14)
[2019-10-30] MEDS: amLODIPine BESYLATE 5 MG TABLET (FP) PO SCH (10:27)
[2019-10-30] MEDS: PRENATAL VITAMINS W/ FOLIC ACID TABLET (FP) PO SCH (10:27)
[2019-10-30] MEDS: THIAMINE HCL 100 MG TABLET (FP) PO SCH (22:22)
[2019-10-30] MEDS: MELATONIN 5 MG TABLETS PO SCH (22:22)
[2019-10-31 07:13] VITALS: TEMP 98.5
[2019-10-31 10:17] VITALS: BP 131/91; PULSE 76
[2019-10-31] MEDS: PRENATAL VITAMINS W/ FOLIC ACID TABLET (FP) PO SCH (10:55)
[2019-10-31] MEDS: amLODIPine BESYLATE 5 MG TABLET (FP) PO SCH (10:55)
--- NOTE | 2019-10-31 12:06 | DS ---
[facility] Rehab Discharge Summary - [facility] Rehab Discharge Summary Admission Date: 10/28/19 Discharge Date: 10/31/19 - History Present History: Cocaine dependence, Opioid dependence Pertinent Past History: 58 y.o. male patient reports 6 bags/ day via inhalation x 31 years; relapse 3 days after d/c from this facility longest sobriety x 2 years with outpatient program [facility] [phone] , relapsed after leaving program - Discharge Physical Exam Vital Signs: Vital Signs Temperature 98.5 F 10/31/19 06:08 Pulse Rate 76 10/31/19 10:00 Respiratory Rate 18 10/31/19 06:08 Blood Pressure 131/91 10/31/19 10:00 O2 Sat by Pulse Oximetry (%) 99 10/31/19 06:08 Pertinent Admission Physical Exam Findings: Physical General Appearance: No apparent distress HEENTM: EOMI, Normocephalic, Respiratory: No Respiratory Distress, No Accessory Muscle Use Neck: supple Abdominal: +BS Musculoskeletal: Full ROM. Gait Steady Neurological: Oriented X4, Strength 5/5, - Treatment Discharge Condition: Discharge condition good (medically stable for discharge. Patient did not want to wait for an outpatient referral. His counselor gave him a list of programs he could call, including [facility] [place]) - Medication Discharge Medications: Ambulatory Orders NK [No Known Home Medication] 12/14/13 - Medication-Assisted Treatment (MAT) Medication-Assisted Treatment (MAT): No - Discharge Instructions Diet, activity, other medical instructions: Diet:as tolerated Activity: as tolerated Other medical instructions: Please follow up with aftercare. - Diagnosis (1) Cocaine dependence, uncomplicated Current Visit: No Status: Chronic (2) Opioid dependence with withdrawal Current Visit: No Status: Chronic - Follow-up Referral Minutes to complete discharge: 15 - AMA Did Patient Leave Against Medical Advice: No
== END 2019-10-31 12:05 | disposition home or self-care (01) | DRG 772 ==
LOC: YASAS 13:01 → Y3W 13:02
PROVIDERS: ADMIT Allergy & Immunology; ATTEND Allergy & Immunology
PROC: HZ42ZZZ Group Counseling for Substance Abuse Treatment, Cognitive-Behavioral (ICD-10-PCS; principal; 2019-10-28)
DX: F11.20 Opioid dependence, uncomplicated (principal); F14.20 Cocaine dependence, uncomplicated; F17.210 Nicotine dependence, cigarettes, uncomplicated